=== PATIENT | female | born 1955 | race Caucasian/White ===

== ENCOUNTER 2019-05-04 14:15 | Emergency (ER) | payer BC, SELFPAY ==
[2019-05-04 14:19] VITALS: BP 157/72; PULSE 62; RESP 14; TEMP 36.2; O2SAT 100
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
[2019-05-04] MEDS: ONDANSETRON 4 MG/2 ML INJ IV (15:07)
[2019-05-04] MEDS: KETOROLAC 60 MG/2 ML VIAL 30 MG IV (15:07)
[2019-05-04] MEDS: SODIUM CHLORIDE 0.9% 1,000 ML 1000 ML IV (15:07)
[2019-05-04 16:02] VITALS: BP 140/72; PULSE 65; RESP 16; O2SAT 100
== END 2019-05-04 16:02 | disposition home or self-care (01) ==
PROVIDERS: Emergency Provider Emergency Medicine
DX: G43.909 Migraine, unspecified, not intractable, without status migrainosus (principal); V43.52XA Car driver injured in collision with other type car in traffic accident, initial encounter
CPT/HCPCS: 96361; 96374; 96375; 99283; 99284; J1885; J2405

== ENCOUNTER → 2022-10-23 12:05 | Outpatient (CLI) | payer MEDICARE, BC, SELFPAY ==
--- NOTE | 2022-10-23 | DI.CT.S_ITS ---
PROCEDURE: CT HEAD/BRAIN WO/W CON INDICATIONS: concussion with loss of conscionness TECHNIQUE: 4.5 mm thick angled axial sections acquired from the foramen magnum to the vertex both before and after the administration of intravenous contrast, with coronal and sagittal reformats. For radiation dose reduction, the following was used: automated exposure control, adjustment of mA and/or kV according to patient size. COMPARISON: None. FINDINGS: Image quality: Excellent. CSF spaces: Basal cisterns are patent. No extra-axial fluid collections. Ventricles are symmetric in size and shape. Brain: No midline shift. No intracranial bleeds or masses. No abnormal intracranial enhancement. Dural sinuses and major central cerebral arteries demonstrate normal postcontrast enhancement. There is cerebral volume loss for age. There is periventricular white matter chronic small vessel ischemic change. There is intracranial internal carotid artery atherosclerosis. Skull and face: Calvarium and visualized facial bones appear intact, without suspicious lesions. Sinuses: Visualized sinuses and mastoids are clear. IMPRESSION: No acute intracranial disease process. Dictated by: Betina Lopez MD, PhD on 10/23/2022 at 12:58 Approved by: Betina Lopez MD, PhD on 10/23/2022 at 13:01
== END ==
PROVIDERS: PCP Family Medicine; Referring Provider Family Medicine; Visit Provider Family Medicine
DX: S00.93XA Contusion of unspecified part of head, initial encounter (principal); S06.0X9A Concussion with loss of consciousness of unspecified duration, initial encounter; G35 Multiple sclerosis; R29.6 Repeated falls
CPT/HCPCS: 70470; Q9967

== ENCOUNTER 2023-03-13 22:29 | Emergency (ER) | payer MEDICARE, BC, SELFPAY ==
[2023-03-13 22:43] VITALS: BP 182/79; PULSE 90; RESP 18; TEMP 37.1; O2SAT 99; BMI 20.5
[2023-03-13 23:08] LABS: RBC Urine 0-1/HPF (0-5/HPF)
[2023-03-13 23:09] LABS: Bacteria Urine Few (2-10); Culture Indicated Urine Specimen Cultured; Squamous Epithelial Cell Urine 1-5 /HPF (0-5/HPF); WBC Urine 5-10/HPF (0-5/HPF)
--- NOTE | 2023-03-13 23:10 | ED_ITS ---
HPI - General Adult General Chief complaint: Urogenital-Female Stated complaint: thinks kidney stone Time Seen by Provider: 03/13/23 22:57 Source: patient Mode of arrival: Ambulatory History of Present Illness HPI narrative: Patient is a 67-year-old female. Has had history of kidney stones. Has needed to have lithotripsy. States that earlier today she started have dysuria. Having urinary frequency and urgency and burning and pain with urination. She also has left-sided flank pain that she states does feel somewhat like a prior kidney stone. No vomiting. No fevers. Has not tried anything for the symptoms prior to arrival. Related Data Previous Rx's Medication Instructions Recorded ketorolac 10 mg tablet 10 mg PO Q6H PRN pain #14 tabs 05/04/19 ondansetron 4 mg disintegrating 4 mg PO TID-QID PRN nausea and 05/04/19 tablet vomiting #10 tabs cephalexin 500 mg capsule 500 mg PO BID 5 days #10 caps 03/14/23 fluconazole 100 mg tablet 100 mg PO DAILY #7 tabs 03/14/23 (Diflucan) phenazopyridine 100 mg tablet 100 mg PO TID PRN pain 6 doses #6 03/14/23 (Pyridium) tabs Allergies Allergy/AdvReac Type Severity Reaction Status Date / Time codeine Allergy Unknown Verified 05/04/19 14:24 prochlorperazine Allergy Unknown Verified 05/04/19 14:24 baclofen Allergy Verified 03/13/23 22:43 ketorolac Allergy Verified 03/13/23 22:43 tizanidine [From Zanaflex] Allergy Verified 03/13/23 22:43 NSAIDS (Non-Steroidal AdvReac Unknown Verified 05/04/19 14:24 Anti-Inflamma prednisone AdvReac Unknown Verified 05/04/19 14:24 tramadol AdvReac Unknown Verified 05/04/19 14:24 oral steroids AdvReac Uncoded 03/13/23 22:43 Review of Systems Review of Systems ROS Unobtainable: All systems reviewed & are unremarkable except as noted in HPI and below Patient History Medical History Multiple sclerosis Social History Smoking Status: Never smoker Smoking Status: Never smoker alcohol intake frequency: 0-2 drinks per day Substance Use Type: does not use Exam Initial Vital Signs Initial Vital Signs: Vital Signs Temperature 98.7 F 03/13/23 22:43 Pulse Rate 90 03/13/23 22:43 Respiratory Rate 18 03/13/23 22:43 Blood Pressure 182/79 H 03/13/23 22:43 Pulse Oximetry 99 03/13/23 22:43 Oxygen Delivery Method Room Air 03/13/23 22:43 Const General: cooperative, comfortable and No ill appearing HENMT Head: normal to inspection and normocephalic Resp Effort & Inspection: normal respiratory effort Auscultation: clear to auscultation bilaterally Cardio Rate: regular rate Rhythm: regular rhythm GI Inspection: normal to inspection and non-distended Back/Spine/Pelvis Back: No CVA tenderness Skin General: no rashes or lesions noted Extrem General: normal to inspection and capillary refill normal Course Orders Ordered: ED Orders 03/13/23 23:00 Urine Culture Stat Urine Microscopic Stat 03/13/23 23:11 CT kidney ureter bladder (KUB) Stat 03/13/23 23:22 Basic Metabolic Panel Stat Complete Blood Count AUTO DIFF Stat Discontinued Medications Cephalexin HCl (Cephalexin 250 Mg Capsule) 500 mg PO NOW ONE Stop: 03/14/23 00:45 Morphine Sulfate (Morphine 4 Mg/Ml Inj) 4 mg IV NOW ONE Stop: 03/13/23 23:13 Last Admin: 03/13/23 23:24 Dose: 4 mg Documented By: AGUS Ondansetron HCl (Ondansetron 4 Mg/2 Ml Inj) 4 mg IV NOW ONE Stop: 03/13/23 23:12 Last Admin: 03/13/23 23:24 Dose: 4 mg Documented By: AGUS Phenazopyridine HCl (Phenazopyridine 100 Mg Tablet) 100 mg PO NOW ONE Stop: 03/14/23 00:45 Vital Signs Vital signs: Vital Signs - 8 hr 03/13/23 22:43 03/13/23 23:42 03/13/23 23:43 Temperature 98.7 F Pulse Rate 90 77 Respiratory Rate 18 Blood Pressure 182/79 H 137/63 Pulse Oximetry 99 97 Oxygen Delivery Method Room Air 03/13/23 23:43 03/14/23 00:00 03/14/23 00:00 Temperature Pulse Rate 76 70 Respiratory Rate Blood Pressure 137/61 Pulse Oximetry 96 96 Oxygen Delivery Method 03/14/23 00:30 03/14/23 00:30 Temperature Pulse Rate 74 Respiratory Rate Blood Pressure 153/63 H Pulse Oximetry 95 Oxygen Delivery Method Medical Decision Making Lab Data Lab results reviewed: Yes I reviewed the patient's lab results. 03/13/23 23:22 03/13/23 23:22 Labs: Lab Results 03/13/23 03/13/23 03/13/23 Range/Units 23:00 23:22 23:22 WBC 9.2 (4.5-11.0) X10^3/uL RBC 3.55 L (4.0-5.2) X10^6/uL Hgb 11.6 L (12.0-16.0) g/dL Hct 33.5 L (36-46) % MCV 94.4 (80-100) fL MCH 32.6 (26-34) PG MCHC 34.5 (30-36) % RDW 12.6 (11.6-14.8) % Plt Count 279 (150-400) X10^3/uL Neut % (Auto) 58.3 (50-75) % Lymph % (Auto) 29.8 (25-40) % Bee % (Auto) 9.1 (3-14) % Eos % (Auto) 2.0 (2-4) % Baso % (Auto) 0.8 (0-2) % Neut # (Auto) 5300 (6624-1563) /uL Lymph # (Auto) 2700 (4180-5110) /uL Bee # (Auto) 800 (0-900) /uL Eos # (Auto) 200 (0-450) /uL Baso # (Auto) 100 (0-100) /uL Sodium 135 L (137-145) mmol/L Potassium 4.0 (3.4-5.1) mmol/L Chloride 100 (98-107) mmol/L Carbon Dioxide 30 (22-32) mmol/L BUN 8 (7-17) mg/dL Creatinine 0.52 (0.52-1.04) mg/dL Estimated GFR > 60 (>60) mL/min BUN/Creatinine Ratio 15.4 (6-22) Glucose 102 (80-110) mg/dL Calcium 9.0 (8.4-10.2) mg/dL Urine RBC 0-1/hpf (0-5/HPF) Urine WBC 5-10/hpf H (0-5/HPF) Ur Squamous Epith Cells 1-5 /hpf (0-5/HPF) Urine Bacteria Few (2-10) H (None) Ur Culture Indicated? Specimen cultured Urine Dip Bedside Urine Glucose Negative Bedside Urine Bilirubin - Negative Bedside Urine Ketone - Negative Urine Specific [place] 1.01 Bedside Urine Occult Blood +++ Bedside Urine pH 6 Bedside Urine Protein - Negative Bedside Urine Urobilinogen - Negative Bedside Urine Nitrite - Negative Bedside Urine Leukocytes + 70 Esterase Point of care testing: Urine Dip Bedside Urine Glucose Negative Bedside Urine Bilirubin - Negative Bedside Urine Ketone - Negative Urine Specific [place] 1.01 Bedside Urine Occult Blood +++ Bedside Urine pH 6 Bedside Urine Protein - Negative Bedside Urine Urobilinogen - Negative Bedside Urine Nitrite - Negative Bedside Urine Leukocytes + [address] scan - abdomen/pelvis: Radiologist's Impression: PROCEDURE:? CT KIDNEY URETER BLADDER (KUB) ? INDICATIONS:? L side flank pain eval for stone ? TECHNIQUE:? Axial sections were acquired from the lung bases to the pubic symphysis.? Coronal and sagittal reformats were performed.? For radiation dose reduction, the following was used: ?automated exposure control, adjustment of mA and/or kV according to patient size.? ? COMPARISON:? None. ? FINDINGS:? Image quality:? Excellent.? ? Lung bases:? There is minimal atelectasis.? ? Heart:? Heart is normal in size. ? URINARY: Right Kidney and Ureter: ? No stones or hydronephrosis.? No hydroureter.? ? Left Kidney and Ureter: ? There is a 0.2 cm nonobstructing left renal stone.? No hydronephrosis.? No hydroureter. ? Bladder:? Normal wall thickness. No stones. ? ? ? ABDOMEN: Liver:? Noncontrast evaluation of the liver demonstrates no discrete? mass. Gallbladder:? Surgically absent. Biliary ducts:? No biliary ductal dilatation.? ? Pancreas:? Unremarkable.? ? Spleen:? Normal in size.? ? Adrenal Glands:? No adrenal nodules.? ? ? Stomach and Bowel:? Stomach, small bowel loops, and colon are normal in caliber and wall thickness.? No pericecal inflammatory changes to suggest appendicitis. Peritoneum:? No abnormal intraperitoneal fluid.? No free air.? ? Ventral Wall: ? No hernia.? Abdominal Nodes:? No retroperitoneal or mesenteric adenopathy by size criteria.? Vessels:? Aorta and inferior vena cava are normal in size.? ? PELVIS: Pelvic Organs:? Unremarkable.? ? Pelvic Nodes:? There are bilateral mildly enlarged inguinal lymph nodes measuring up to 1.0 cm in short axis which are nonspecific but likely reactive. Miscellaneous: No inguinal hernias identified. ? ? ? Bones:? Visualized osseous structures demonstrate no suspicious focal lesions. IMPRESSION:? ? 1. Small nonobstructing left renal stone.? No evidence of obstructive uropathy. ? 2. Mildly enlarged bilateral inguinal lymph nodes are nonspecific but likely reactive.? MDM Narrative Medical decision making narrative: Patient does have left-sided kidney stone but no ureteral stones. Her urinalysis does have hematuria and also leukocyte esterase and white blood cells and bacteria. There was no signs of pyelonephritis noted on the CT scan. I have low suspicion that the kidney stone was causing her discomfort and I suspect that it is more of the urinary tract infection. Will treat her with antibiotics. No indication for IV antibiotics. Kidney function is unremarkable. Patient was given her 1st dose here in the ER. Also sent home with the Diflucan she states she very frequently gets issues with yeast after having chemotherapy and taking antibiotics. The urine culture was pending at the time of discharge and we will contact her if we need to change any antibiotics. She was given return precautions. She expressed understanding and agreement. Discharge Plan Departure Patient Disposition: Home Clinical Impression: Urinary tract infection Instructions: DI for Urinary Tract Infection (UTI) Activity Restrictions/Additional Instructions: I do recommend that you take all the medications as directed. A urine culture was pending at the time of your discharge and we will contact you if we need to change any antibiotics. Return to the emergency department for new or worsening symptoms. Prescriptions: New cephalexin 500 mg capsule 500 mg PO BID 5 Days Qty: 10 0RF phenazopyridine [Pyridium] 100 mg tablet 100 mg PO TID PRN (Reason: pain) Qty: 6 0RF fluconazole [Diflucan] 100 mg tablet 100 mg PO DAILY Qty: 7 0RF No Action ketorolac 10 mg tablet 10 mg PO Q6H PRN (Reason: pain) Qty: 14 0RF ondansetron 4 mg tablet,disintegrating 4 mg PO TID-QID PRN (Reason: nausea and vomiting) Qty: 10 0RF Referrals: Abdoulaye Geronimo DO [Primary Care Provider] - Stand Alone Forms: Patient Portal/API
--- NOTE | 2023-03-13 23:11 | DI.CT.S_ITS ---
PROCEDURE: CT KIDNEY URETER BLADDER (KUB) INDICATIONS: L side flank pain eval for stone TECHNIQUE: Axial sections were acquired from the lung bases to the pubic symphysis. Coronal and sagittal reformats were performed. For radiation dose reduction, the following was used: automated exposure control, adjustment of mA and/or kV according to patient size. COMPARISON: None. FINDINGS: Image quality: Excellent. Lung bases: There is minimal atelectasis. Heart: Heart is normal in size. URINARY: Right Kidney and Ureter: No stones or hydronephrosis. No hydroureter. Left Kidney and Ureter: There is a 0.2 cm nonobstructing left renal stone. No hydronephrosis. No hydroureter. Bladder: Normal wall thickness. No stones. ABDOMEN: Liver: Noncontrast evaluation of the liver demonstrates no discrete mass. Gallbladder: Surgically absent. Biliary ducts: No biliary ductal dilatation. Pancreas: Unremarkable. Spleen: Normal in size. Adrenal Glands: No adrenal nodules. Stomach and Bowel: Stomach, small bowel loops, and colon are normal in caliber and wall thickness. No pericecal inflammatory changes to suggest appendicitis. Peritoneum: No abnormal intraperitoneal fluid. No free air. Ventral Wall: No hernia. Abdominal Nodes: No retroperitoneal or mesenteric adenopathy by size criteria. Vessels: Aorta and inferior vena cava are normal in size. PELVIS: Pelvic Organs: Unremarkable. Pelvic Nodes: There are bilateral mildly enlarged inguinal lymph nodes measuring up to 1.0 cm in short axis which are nonspecific but likely reactive. Miscellaneous: No inguinal hernias identified. Bones: Visualized osseous structures demonstrate no suspicious focal lesions. IMPRESSION: 1. Small nonobstructing left renal stone. No evidence of obstructive uropathy. 2. Mildly enlarged bilateral inguinal lymph nodes are nonspecific but likely reactive. Dictated by: Vishal aDvis M.D. on 03/14/2023 at 0:12 Approved by: Vishal Davis M.D. on 03/14/2023 at 0:15
[2023-03-13] MEDS: MORPHINE 4 MG/ML INJ IV (23:24)
[2023-03-13] MEDS: ONDANSETRON 4 MG/2 ML INJ IV (23:24)
[2023-03-13 23:31] LABS: Add Manual Diff / Slide Review NO; Basophils Absolute Auto 100 /uL (0-100); Basophils Percent Auto 0.8 % (0-2); Eosinophils Absolute Auto 200 /uL (0-450); Hematocrit 33.5 % (36-46); Hemoglobin 11.6 g/dL (12.0-16.0); Lymphocytes Absolute Auto 2700 /uL (1100-4500); Lymphocytes Percent Auto 29.8 % (25-40); Mean Corpuscular HGB Conc 34.5 % (30-36); Mean Corpuscular Hemoglobin 32.6 PG (26-34); Mean Corpuscular Volume 94.4 fL (80-100); Monocytes Absolute Auto 800 /uL (0-900); Monocytes Percent Auto 9.1 % (3-14); Neutrophils Absolute Auto 5300 /uL (1500-7000); Neutrophils Percent Auto 58.3 % (50-75); Platelet Count 279 X10^3/uL (150-400); Red Blood Cell Count 3.55 X10^6/uL (4.0-5.2); Red Cell Distribution Width 12.6 % (11.6-14.8); White Blood Cell Count 9.2 X10^3/uL (4.5-11.0)
[2023-03-13 23:42] VITALS: PULSE 77; O2SAT 97
[2023-03-13 23:43] VITALS: BP 137/63; PULSE 76; O2SAT 96
[2023-03-13 23:45] LABS: BUN Creatinine Ratio 15.4 (6-22); Blood Urea Nitrogen 8 mg/dL (7-17); Carbon Dioxide 30 mmol/L (22-32); Chloride 100 mmol/L (98-107); Estimated Glomerular Filt Rate > 60 mL/min (>60); Glucose 102 mg/dL (80-110); HEMOLYSIS 39 (0-50); Sodium 135 mmol/L (137-145)
[2023-03-14] VITALS: BP 137/61; PULSE 70; O2SAT 96
[2023-03-14 00:30] VITALS: BP 153/63; PULSE 74; O2SAT 95
[2023-03-14] MEDS: PHENAZOPYRIDINE 100 MG TABLET PO (00:56)
[2023-03-14] MEDS: cephALEXin 250 MG CAPSULE 500 MG PO (00:56)
[2023-03-14 00:57] VITALS: TEMP 36.6
== END 2023-03-14 00:58 | disposition home or self-care (01) ==
PROVIDERS: Emergency Provider Emergency Medicine; PCP Family Medicine
DX: N39.0 Urinary tract infection, site not specified (principal)
CPT/HCPCS: 36415; 74176; 80048; 81003; 81015; 85025; 87086; 96374; 96375; 99284; J2270; J2405

== ENCOUNTER → 2023-04-04 14:13 | Outpatient (CLI) | payer MEDICARE, BC, SELFPAY ==
--- NOTE | 2023-04-04 14:15 | DI.RAD.S_ITS ---
PROCEDURE: XR MANDIBLE MIN 4V INDICATIONS: jaw pain TECHNIQUE: 4 views of the mandible were acquired. COMPARISON: None. FINDINGS: Bones: No fractures or dislocations. No suspicious bony lesions. Soft tissues: Visualized sinuses appear clear. There is soft tissue gas noted tracking in the neck and retropharyngeal space, partially imaged IMPRESSION: Soft tissue gas in the right submandibular neck. Advise follow-up CT neck and chest with contrast. Differential would include infection and extension of soft tissue emphysema extending from the chest. Approved by: Dylon Heredia M.D. on 04/04/2023 at 18:08
== END ==
PROVIDERS: PCP Family Medicine; Referring Provider Nurse Practitioner Family; Visit Provider Nurse Practitioner Family
DX: R68.84 Jaw pain (principal)
CPT/HCPCS: 70110

== ENCOUNTER 2023-04-05 11:32 | Observation (INO) | payer MEDICARE, BC, SELFPAY ==
[2023-04-05] VITALS (11 sets, daily range): BP systolic 117–155; BP diastolic 58–91; PULSE 64–79; RESP 14–18; TEMP 36.6; O2SAT 96–98; BMI 21.2
--- NOTE | 2023-04-05 13:27 | DI.CT.S_ITS ---
PROCEDURE: CT SOFT TISSUE NECK W CON INDICATIONS: Pain TECHNIQUE: After the administration of intravenous contrast, 3.0 mm axial sections acquired from the sella to the aortic arch. 3 mm thick coronal and sagittal reformats were generated. For radiation dose reduction, the following was used: automated exposure control. COMPARISON: [facility], CR, XR MANDIBLE MIN 4V, 04/04/2023, 14:30. FINDINGS: Image quality: Excellent. Lymph nodes: No enlarged lymph nodes seen throughout the neck. Vessels: Visualized vasculature appears patent. Neck spaces: The oropharynx, nasopharynx, and pharynx demonstrate no mucosal lesions. The vocal cords, false vocal cords, pyriform sinuses, epiglottis, vallecula, and tongue base all appear normal. Right-sided subcutaneous emphysema noted dissecting through the fascial planes extending from the base of the skull through the superior mediastinum. Involvement of the retropharyngeal space as well, and does cross the midline. No pneumothorax in the upper chest present. No evidence of superior pneumothorax Glands: The parotid and submandibular glands appear normal. Thyroid gland unremarkable. Miscellaneous: Visualized brain and orbits appear normal. Lung apices appear clear. Superficial soft tissues appear normal. Bones: No suspicious bony lesions. Visualized sinuses and mastoids appear unremarkable. IMPRESSION: Benign-appearing soft tissue emphysema noted predominantly right-sided neck extending from the skull base into the superior mediastinum. This possibly could related to ruptured alveoli in the chest if there is a history of significant coughing. Differential would include esophageal rupture. Much less likely differential would include gas-forming infection such as necrotizing fasciitis. Correlate with clinical history as to the need for clinical follow-up and/or CT of the chest Approved by: Dylon Heredia M.D. on 04/05/2023 at 13:27
--- NOTE | 2023-04-05 13:30 | ED_ITS ---
HPI - Dental/Oral General Chief complaint: Dental/Oral Stated complaint: Sent from PCP, jaw/ear/neck Time Seen by Provider: 04/05/23 13:05 Source: patient, RN notes reviewed and old records reviewed Mode of arrival: Family Vehicle Limitations: no limitations History of Present Illness HPI Narrative: This is a 67-year-old female with primary progressive muscular sclerosis, history of breast cancer at age 31, endometriosis, RLS and plaque psoriasis. Patient presents today she had a dental procedure last Saturday she states they were drooling on her right lower jaw for a tooth not her posterior molars but mid jaw when she felt pop when the dentist was moving her cheek side with a mere had pain that radiated up to her ear and has since moved down her neck towards her chest. She states there has been some persistent swelling not worsening but not resolving some mild redness particularly on the underside above the clavicles. She states she is been hoarse since then. She states no fevers but has felt warm, she denies any chest pain or shortness of breath no nausea or vomiting. Related Data Home Medications Medication Instructions Recorded Confirmed almotriptan malate 12.5 mg tablet 12.5 mg PO ONCE PRN Migraine 04/04/23 04/05/23 Headache clonazepam 1 mg tablet 1 mg PO BEDTIME 04/04/23 04/05/23 duloxetine 60 mg capsule,delayed 60 mg PO DAILY 04/04/23 04/05/23 release (Cymbalta) estradiol 2 mg tablet 2 mg PO QAM 04/04/23 04/05/23 gabapentin 600 mg tablet 600 mg PO BEDTIME 04/04/23 04/05/23 hydromorphone 4 mg tablet 4 mg PO Q4-6H PRN Pain (Scale 04/04/23 04/05/23 Score 1-3) mirabegron 50 mg tablet,extended 50 mg PO DAILY 04/04/23 04/05/23 release 24 hr (Myrbetriq) oxcarbazepine 150 mg tablet 150 mg PO DAILY 04/04/23 04/05/23 (Trileptal) tolterodine 2 mg tablet (Detrol) 4 mg PO BEDTIME 04/04/23 04/05/23 biotin 1 mg tablet 1 mg PO DAILY 04/05/23 04/05/23 clobetasol 0.05 % topical cream 1 applic topical DAILY 04/05/23 04/05/23 cyanocobalamin (vitamin B-12) 5,000 mcg sublingual DAILY 04/05/23 04/05/23 5,000 mcg sublingual tablet ferrous gluconate 225 mg (27 mg 225 mg PO DAILY 04/05/23 04/05/23 iron) tablet (Fergon) glatiramer 40 mg/mL subcutaneous 40 mg SUBCUT 3XW 04/05/23 04/05/23 syringe (Copaxone) glucosamine sulf dipot 2 cap PO BEDTIME 04/05/23 04/05/23 chlr,msm,chond 550 mg-C 30 mg-ning 1 mg capsule (Glucosamine Chondroitin) psyllium 1 packet PO DAILY 04/05/23 04/05/23 Previous Rx's Medication Instructions Recorded ondansetron 4 mg disintegrating 4 mg PO TID-QID PRN nausea and 05/04/19 tablet vomiting #10 tabs Allergies Allergy/AdvReac Type Severity Reaction Status Date / Time codeine Allergy Unknown Verified 04/05/23 11:50 prochlorperazine Allergy Unknown Verified 04/05/23 11:50 baclofen Allergy Verified 04/05/23 11:50 ketorolac Allergy Verified 04/05/23 11:50 tizanidine [From Zanaflex] Allergy Verified 04/05/23 11:50 NSAIDS (Non-Steroidal AdvReac Unknown Verified 04/05/23 11:50 Anti-Inflamma prednisone AdvReac Unknown Verified 04/05/23 11:50 tramadol AdvReac Unknown Verified 04/05/23 11:50 oral steroids AdvReac Uncoded 03/13/23 22:43 Review of Systems Review of Systems ROS Unobtainable: All systems reviewed & are unremarkable except as noted in HPI and below Patient History Medical History Multiple sclerosis Social History Smoking Status: Never smoker Smoking Status: Never smoker alcohol intake frequency: 0-2 drinks per day Substance Use Type: does not use Exam Narrative Exam Narrative: GEN: well nourished, well appearing female, alert and oriented x 3, patient appears to be in mild distress. HEENT: Atraumatic, pupils are equal round reactive to light, extraocular movements are intact, nares are clear, TMs are clear with no fluid, there is no conjunctival pallor. Throat is clear without any exudates, erythema, tonsillar enlargement or uvular deviation, patient does have some discomfort fully opening her jaw, she states this is more from discomfort and not her MS. She has some mild swelling over the right mandible, no extensive, no subcutaneous emphysema appreciated, patient has some very mild possible erythema over the right lateral neck. Patient has normal range of motion. HEART: Regular rate and rhythm without murmur, clicks, rubs. LUNGS:Lungs clear to auscultation, no wheezes, rales, crackles, chest moves symmetrically ABD:bowel sounds normal, soft, non-tender, no guarding, rebound, rigidity, no masses noted, no hepatosplenomegaly :No CVA tenderness. MSCL: Non-tender, no muscle atrophy, muscles strength 5/5 upper and lower extremities, full range of motion. NEURO:CN 2-12 intact, sensation normal Initial Vital Signs Initial Vital Signs: Vital Signs Temperature 97.8 F 04/05/23 11:45 Pulse Rate 79 04/05/23 11:45 Respiratory Rate 18 04/05/23 11:45 Blood Pressure 133/63 04/05/23 11:45 Pulse Oximetry 97 04/05/23 11:45 Oxygen Delivery Method Room Air 04/05/23 11:45 Course Orders Ordered: Acetaminophen (Acetaminophen 325 Mg Tablet) 650 mg PO Q6H PRN PRN Reason: Fever/Mild Pain (1-3) Last Admin: 04/05/23 20:49 Dose: 650 mg Documented By: ST Duloxetine HCl (Duloxetine 30 Mg Capsule) 60 mg PO DAILY [facility] Estradiol (Estradiol 1 Mg Tablet) 2 mg PO DAILY [facility] Last Admin: 04/06/23 00:14 Dose: 2 mg Documented By: OW Fluconazole (Fluconazole 100 Mg Tablet) 100 mg PO DAILY [facility] Last Admin: 04/06/23 00:14 Dose: 100 mg Documented By: OW Ampicillin Sodium/Sulbactam (Sodium 3 gm/ Sodium Chloride) 100 mls @ 200 mls/hr IV Q6H AR Morphine Sulfate (Morphine 2 Mg/Ml Inj) 2 mg IV Q4HR PRN PRN Reason: Pain, Moderate (4-6) Last Admin: 04/06/23 04:16 Dose: 2 mg Documented By: Admin: 04/05/23 20:48 Dose: 2 mg Documented By: Naloxone HCl (Naloxone 0.4 Mg/Ml Vial) 0.2 mg IV Q2MIN PRN PRN Reason: Opiate Reversal Non-Formulary Medication (Tolterodine [Detrol]) 4 mg PO BEDTIME AR Ondansetron HCl (Ondansetron 4 Mg/2 Ml Inj) 4 mg IV Q8HR PRN PRN Reason: Nausea And Vomiting Oxcarbazepine (Oxcarbazepine 150 Mg Tablet) 150 mg PO DAILY AR Oxybutynin Chloride (Oxybutynin 5 Mg Er Tab) 10 mg PO DAILY AR Oxycodone HCl (Oxycodone Ir 5 Mg Tablet) 5 mg PO Q6HR PRN PRN Reason: Pain, Mild (1-3) Last Admin: 04/06/23 04:17 Dose: 5 mg Documented By: Admin: 04/05/23 20:50 Dose: 5 mg Documented By: Discontinued Medications Clonazepam (Clonazepam 0.5 Mg Tablet) 1 mg PO NOW ONE Stop: 04/06/23 00:25 Last Admin: 04/06/23 00:41 Dose: 1 mg Documented By: DOT Gabapentin (Gabapentin 600 Mg Tablet) 600 mg PO NOW ONE Stop: 04/06/23 00:05 Last Admin: 04/06/23 00:14 Dose: 600 mg Documented By: DOT Hydromorphone HCl (Hydromorphone 0.5 Mg Inj) 0.5 mg IV NOW ONE Stop: 04/05/23 13:28 Last Admin: 04/05/23 13:34 Dose: 0.5 mg Documented By: AGUS Hydromorphone HCl (Hydromorphone 0.5 Mg Inj) 0.5 mg IV NOW ONE Stop: 04/05/23 15:18 Last Admin: 04/05/23 15:22 Dose: 0.5 mg Documented By: Ampicillin Sodium/Sulbactam (Sodium 3 gm/ Sodium Chloride) 100 mls @ 200 mls/hr IV NOW ONE Stop: 04/05/23 16:19 Last Infusion: 04/05/23 17:40 Dose: 0 mls/hr Documented By: Admin: 04/05/23 16:56 Dose: 200 mls/hr Documented By: Vital Signs Vital signs: Vital Signs - 8 hr 04/05/23 11:45 04/05/23 14:00 04/05/23 14:30 Temperature 97.8 F Pulse Rate 79 73 77 Respiratory Rate 18 14 16 Blood Pressure 133/63 138/63 121/77 Pulse Oximetry 97 98 97 Oxygen Delivery Method Room Air Room Air Room Air 04/05/23 16:00 04/05/23 18:00 04/05/23 17:15 Temperature Pulse Rate 69 77 78 Respiratory Rate 14 14 Blood Pressure 142/65 H 143/65 H Pulse Oximetry 97 96 97 Oxygen Delivery Method Room Air Room Air MDM - Dental/Oral Lab Data 04/06/23 03:55 04/06/23 03:55 Labs: Lab Results 04/05/23 04/05/23 04/05/23 Range/Units 12:30 12:30 12:30 WBC 6.2 (4.5-11.0) X10^3/uL RBC 3.56 L (4.0-5.2) X10^6/uL Hgb 11.5 L (12.0-16.0) g/dL Hct 34.0 L (36-46) % MCV 95.7 (80-100) fL MCH 32.4 (26-34) PG MCHC 33.9 (30-36) % RDW 12.7 (11.6-14.8) % Plt Count 276 (150-400) X10^3/uL Neut % (Auto) 48.5 L (50-75) % Lymph % (Auto) 38.1 (25-40) % [place] % (Auto) 9.8 (3-14) % Eos % (Auto) 2.8 (2-4) % Baso % (Auto) 0.8 (0-2) % Neut # (Auto) 3000 (2138-3024) /uL Lymph # (Auto) 2300 (5768-5085) /uL [place] # (Auto) 600 (0-900) /uL Eos # (Auto) 200 (0-450) /uL Baso # (Auto) 0 (0-100) /uL Sodium 135 L (137-145) mmol/L Potassium 4.1 (3.4-5.1) mmol/L Chloride 99 (98-107) mmol/L Carbon Dioxide 31 (22-32) mmol/L BUN 17 (7-17) mg/dL Creatinine 0.56 (0.52-1.04) mg/dL Estimated GFR > 60 (>60) mL/min BUN/Creatinine Ratio 30.4 H (6-22) Glucose 85 (80-110) mg/dL Lactate 1.7 (0.7-2.1) mmol/L Calcium 9.0 (8.4-10.2) mg/dL Total Bilirubin 0.4 (0.2-1.3) mg/dL AST 23 (14-36) IU/L ALT 16 (<35) IU/L Alkaline Phosphatase 61 (38-126) U/L Total Protein 7.0 (6.3-8.2) g/dL Albumin 3.9 (3.5-5.0) g/dL Globulin 3.1 (1.7-4.1) g/dL Albumin/Globulin Ratio 1.3 (1.0-2.8) Procalcitonin < 0.03 (<0.5) ng/mL Imaging Data soft tissue neck CT: Radiologist's Impression: [address] [address] [address] Scan Report Signed Patient: Brunilda Castillo MR#: [id number] : 1955 Acct:[id number] Age/Sex: 67 / F Date of Service: 04/05/23 Loc: ED Accession Number: [id number] ?? Procedure: CT soft tissue neck w con Ordering Provider: Richa De Los Santos D.O. PROCEDURE:? CT SOFT TISSUE NECK W CON ? INDICATIONS:? Pain ? TECHNIQUE:? After the administration of intravenous contrast, 3.0 mm axial sections acquired from the sella to the aortic arch.? 3 mm thick coronal and sagittal reformats were generated.? For radiation dose reduction, the following was used:? automated exposure control.? ? COMPARISON:? [facility], [facility], XR MANDIBLE MIN 4V, 04/04/2023, 14:30. ? FINDINGS:? Image quality:? Excellent.? ? Lymph nodes:? No enlarged lymph nodes seen throughout the neck.? ? Vessels:? Visualized vasculature appears patent.? ? Neck spaces:? The oropharynx, nasopharynx, and pharynx demonstrate no mucosal lesions.? The vocal cords, false vocal cords, pyriform sinuses, epiglottis, vallecula, and tongue base all appear normal.? ? Right-sided subcutaneous emphysema noted dissecting through the fascial planes extending from the base of the skull through the superior mediastinum.? Involvement of the retropharyngeal space as well, and does cross the midline.? No pneumothorax in the upper chest present.? No evidence of superior pneumothorax ? Glands:? The parotid and submandibular glands appear normal.? Thyroid gland unremarkable. ? ? Miscellaneous:? Visualized brain and orbits appear normal.? Lung apices appear clear.? Superficial soft tissues appear normal. ? Bones:? No suspicious bony lesions.? Visualized sinuses and mastoids appear unremarkable. ? ? ? IMPRESSION:? ? Benign-appearing soft tissue emphysema noted predominantly right-sided neck extending from the skull base into the superior mediastinum.? This possibly could related to ruptured alveoli in the chest if there is a history of significant coughing.? Differential would include esophageal rupture.? Much less likely differential would include gas-forming infection such as necrotizing fasciitis.? Correlate with clinical history as to the need for clinical follow-up and/or CT of the chest ? Approved by: Dylon Heredia M.D. on 04/05/2023 at 13:27? CT scan - chest: Radiologist's Impression: Allergy/Adv: codeine, prochlorperazine, baclofen, ketorolac, tizanidine, NSAIDS (Non-Steroidal Anti-Inflamma, prednisone, tramadol, [oral steroids] (More??) Close Chest CT (Signed) Dylon Heredia - 04/05/[address] (Signed) Dylon Heredia - 04/05/23 Mandible X-Ray (Signed) Dylon Heredia - 04/04/23 Abdomen/Pelvis CT (Signed) Vishal Davis - 03/13/[address] (Signed) Betina Lopez - 10/23/22 Launch?[address] [address] [address] Scan Report Signed Patient: Brunilda Castillo MR#: [id number] : 1955 Acct:[id number] Age/Sex: 67 / F Date of Service: 04/05/23 Loc: ED Accession Number: [id number] ?? Procedure: CT chest w con Ordering Provider: Richa De Los Santos D.O. PROCEDURE:? CT CHEST W CON ? INDICATIONS:? emphysema, hoarseness, felt pop after dental procedure. ? TECHNIQUE:? After the administration of intravenous contrast, 5 mm thick sections acquired from the pulmonary apices to the posterior costophrenic angles.? 1 mm axial lung, 5 mm thick coronal and sagittal reformats and 7 mm axial MIP were acquired.? For radiation dose reduction, the following was used:? automated exposure control, adjustment of mA and/or kV according to patient size.? ? COMPARISON:? None. ? FINDINGS:? Image quality:? Excellent.? ? Lungs and pleura:? No acute air space opacities.? No pleural effusions or pneumothorax.? Central and peripheral airways are patent and normal in caliber.? Mild platelike atelectasis noted in the lingular left upper lobe anteriorly ? Mediastinum:? Fascial soft tissue air extends from the base of the neck through the superior mediastinum, connects to the periesophageal posterior mediastinum inferiorly to the level of the midesophagus.? The esophagus itself appears unremarkable.? Gastric cardia normal.? ? Mild scattered atherosclerotic vascular calcifications noted in upper abdominal aorta.? Heart size is normal.? No pericardial effusion.? No mediastinal or hilar adenopathy by size criteria.? Thoracic aorta and central pulmonary arteries are normal in size.? Esophagus is normal in caliber.? No hiatal hernia.? ? Bones and chest wall:? No suspicious bony lesions.? No vertebral body compression fractures.? No axillary or supraclavicular adenopathy by size criteria.? Thyroid gland unremarkable .? ? Abdomen:? Visualized upper abdominal solid organs appear normal.? Upper abdominal bowel loops are normal in caliber.? ? IMPRESSION:? ? Mediastinal soft tissue emphysema extends from the base the neck to the level of the midesophagus.? Esophagus itself appears unremarkable.? No mass effect.? Both lungs unremarkable without pneumothorax. ? ? ? Approved by: Dylon Heredia M.D. on 04/05/2023 at 14:57? [facility] Narrative Medical decision making narrative: 67-year-old female with complaint of pain drink a dental procedure patient had drilling of the tooth and then after drilling stopped they were using a meter to evaluate and then developed pain radiating from her cheek towards her ear and down her neck. She is had some persistent swelling and discomfort. Labs do not show clear change, patient's imaging shows air tracking from what appears to be the cheek down words after discussion with Radiology. CT chest was also obtained. Discussed with local ENT Burt grayson who recommended antibiotics either clinda or Unasyn/Augmentin, recommends consultation with [facility]. Spoke with Dr. Varma, oral surgeon through [facility]. Recommends observation overnight with IV antibiotics Unasyn would be very appropriate. He states quite rare for them to see an actual abscess but is likely related to infection. If patient is doing can discharge home on oral Augmentin. If worsening or other concerning changes to re-contact. Spoke with hospitalist, Dr. Cao accepts for observation. Discussed recommendations from oral surgery observation, Unasyn IV can switch to oral Augmentin. They note that this can sometimes happen they will often not see an actual abscess on imaging but can develop some air typically treat. If no worsening and appears stable appropriate for discharge if there is any worsening or concerning new changes feel free to recontact. Discharge Plan Departure Patient Disposition: Admitted as Observation Clinical Impression: Subcutaneous air, History of recent dental procedure Admit Date/Time: 04/05/23 19:42 Admit Provider: Duy Cao
[2023-04-05] MEDS: HYDROMORPHONE 0.5 MG INJ IV ×2 (13:34→15:22)
[2023-04-05 13:47] LABS: Add Manual Diff / Slide Review NO; Basophils Absolute Auto 0 /uL (0-100); Basophils Percent Auto 0.8 % (0-2); Eosinophils Absolute Auto 200 /uL (0-450); Eosinophils Percent Auto 2.8 % (2-4); Hemoglobin 11.5 g/dL (12.0-16.0); Lymphocytes Absolute Auto 2300 /uL (1100-4500); Lymphocytes Percent Auto 38.1 % (25-40); Mean Corpuscular HGB Conc 33.9 % (30-36); Mean Corpuscular Hemoglobin 32.4 PG (26-34); Mean Corpuscular Volume 95.7 fL (80-100); Monocytes Absolute Auto 600 /uL (0-900); Monocytes Percent Auto 9.8 % (3-14); Neutrophils Absolute Auto 3000 /uL (1500-7000); Neutrophils Percent Auto 48.5 % (50-75); Platelet Count 276 X10^3/uL (150-400); Red Blood Cell Count 3.56 X10^6/uL (4.0-5.2); Red Cell Distribution Width 12.7 % (11.6-14.8); White Blood Cell Count 6.2 X10^3/uL (4.5-11.0)
[2023-04-05 13:53] LABS: Lactate (Lactic Acid) 1.7 mmol/L (0.7-2.1)
[2023-04-05 13:54] LABS: Alanine Aminotransferase 16 IU/L (<35); Albumin 3.9 g/dL (3.5-5.0); Albumin Globulin Ratio 1.3 (1.0-2.8); Alkaline Phosphatase 61 U/L (38-126); Aspartate Aminotransferase 23 IU/L (14-36); BUN Creatinine Ratio 30.4 (6-22); Bilirubin Total 0.4 mg/dL (0.2-1.3); Blood Urea Nitrogen 17 mg/dL (7-17); Carbon Dioxide 31 mmol/L (22-32); Chloride 99 mmol/L (98-107); Estimated Glomerular Filt Rate > 60 mL/min (>60); Globulin 3.1 g/dL (1.7-4.1); Glucose 85 mg/dL (80-110); HEMOLYSIS < 15 (0-50); Potassium 4.1 mmol/L (3.4-5.1); Sodium 135 mmol/L (137-145)
[2023-04-05 14:09] LABS: Procalcitonin < 0.03 ng/mL (<0.5)
--- NOTE | 2023-04-05 14:45 | DI.CT.S_ITS ---
PROCEDURE: CT CHEST W CON INDICATIONS: emphysema, hoarseness, felt pop after dental procedure. TECHNIQUE: After the administration of intravenous contrast, 5 mm thick sections acquired from the pulmonary apices to the posterior costophrenic angles. 1 mm axial lung, 5 mm thick coronal and sagittal reformats and 7 mm axial MIP were acquired. For radiation dose reduction, the following was used: automated exposure control, adjustment of mA and/or kV according to patient size. COMPARISON: None. FINDINGS: Image quality: Excellent. Lungs and pleura: No acute air space opacities. No pleural effusions or pneumothorax. Central and peripheral airways are patent and normal in caliber. Mild platelike atelectasis noted in the lingular left upper lobe anteriorly Mediastinum: Fascial soft tissue air extends from the base of the neck through the superior mediastinum, connects to the periesophageal posterior mediastinum inferiorly to the level of the midesophagus. The esophagus itself appears unremarkable. Gastric cardia normal. Mild scattered atherosclerotic vascular calcifications noted in upper abdominal aorta. Heart size is normal. No pericardial effusion. No mediastinal or hilar adenopathy by size criteria. Thoracic aorta and central pulmonary arteries are normal in size. Esophagus is normal in caliber. No hiatal hernia. Bones and chest wall: No suspicious bony lesions. No vertebral body compression fractures. No axillary or supraclavicular adenopathy by size criteria. Thyroid gland unremarkable . Abdomen: Visualized upper abdominal solid organs appear normal. Upper abdominal bowel loops are normal in caliber. IMPRESSION: Mediastinal soft tissue emphysema extends from the base the neck to the level of the midesophagus. Esophagus itself appears unremarkable. No mass effect. Both lungs unremarkable without pneumothorax. Approved by: Dylon Heredia M.D. on 04/05/2023 at 14:57
[2023-04-05] MEDS: AMPICILLIN/SULBACTAM 3 GM 3 GM in SODIUM CHLORIDE 0.9% 100 ML IV (16:56)
--- NOTE | 2023-04-05 20:17 | P.HP_ITS ---
History of Present Illness History of Present Illness Date Patient Seen: 04/05/23 Time Patient Seen: 21:00 Chief complaint: Sent from PCP, jaw/ear/neck Narrative: Ms. Christian Meadows is a 67W with PMH MS who presents with jaw/neck pain. She had a dental procedure recently with drilling of her mid jaw tooth. No tooth removal. She felt a pop when her cheek was moved with the dental mirror. She had pain that was up near her right ear. Since then it has worsened with right sided neck and chest pain. She has swelling of the right jaw and neck with mild erythema there as well. She has neck pain with swallowing, but no trouble breathing. She states that each time she takes antibiotics she gets esophagitis and she needs to take daily fluconazole to prevent this. In the ED workup was done, vitals notable or afebrile, heart rate 70s, blood pressure 130s/60s, sats 97% room air. Labs reviewed by me and notable for WBC 6.2, hgb 11.5, plts 276. Na 135, creatinine 0.56. Lactate 1.7. Procal negative. CT soft tissue of neck, and CT of chest showed right sided soft tissue emphysema that extends from skull base to the esophagus. OMFS at recommended observation and IV unasyn, and if continues to do well with no worsening discharge with antibiotics, such as Augmentin. She was admitted for further treatment. [facility] Medical History Multiple sclerosis Social History Smoking Status: Never smoker Meds Home Medications and Allergies Home Medications Medication Instructions Recorded Confirmed Type ketorolac 10 mg tablet 10 mg PO Q6H PRN pain #14 tabs 05/04/19 04/04/23 Rx ondansetron 4 mg disintegrating 4 mg PO TID-QID PRN nausea and 05/04/19 04/04/23 Rx tablet vomiting #10 tabs fluconazole 100 mg tablet 100 mg PO DAILY #7 tabs 03/14/23 04/04/23 Rx (Diflucan) phenazopyridine 100 mg tablet 100 mg PO TID PRN pain 6 doses #6 03/14/23 04/04/23 Rx (Pyridium) tabs almotriptan malate 12.5 mg tablet 12.5 mg PO ONCE 04/04/23 04/04/23 History clonazepam 1 mg tablet 1 mg PO BEDTIME 04/04/23 04/04/23 History duloxetine 60 mg capsule,delayed 60 mg PO DAILY 04/04/23 04/04/23 History release (Cymbalta) estradiol 2 mg tablet 2 mg PO DAILY 04/04/23 04/04/23 History gabapentin 600 mg tablet 600 mg PO BEDTIME 04/04/23 04/04/23 History hydromorphone 4 mg tablet 4 mg PO Q4-6H PRN 04/04/23 04/04/23 History mirabegron 50 mg tablet,extended 50 mg PO DAILY 04/04/23 04/04/23 History release 24 hr (Myrbetriq) oxcarbazepine 150 mg tablet 150 mg PO DAILY 04/04/23 04/04/23 History (Trileptal) tolterodine 2 mg tablet (Detrol) 2 mg PO DAILY 04/04/23 04/04/23 History Allergies Allergy/AdvReac Type Severity Reaction Status Date / Time codeine Allergy Unknown Verified 04/05/23 11:50 prochlorperazine Allergy Unknown Verified 04/05/23 11:50 baclofen Allergy Verified 04/05/23 11:50 ketorolac Allergy Verified 04/05/23 11:50 tizanidine [From Zanaflex] Allergy Verified 04/05/23 11:50 NSAIDS (Non-Steroidal AdvReac Unknown Verified 04/05/23 11:50 Anti-Inflamma prednisone AdvReac Unknown Verified 04/05/23 11:50 tramadol AdvReac Unknown Verified 04/05/23 11:50 oral steroids AdvReac Uncoded 03/13/23 22:43 Review of Systems Review of Systems Narrative: 14 systems reviewed and negative aside from what is noted in HPI Exam Vital Signs (past 8 hours): - 04/05/23 14:00 04/05/23 14:30 04/05/23 16:00 Pulse Rate 73 77 69 Respiratory Rate 14 16 Blood Pressure 138/63 121/77 Pulse Oximetry 98 97 97 Oxygen Delivery Method Room Air Room Air 04/05/23 18:00 04/05/23 17:15 Pulse Rate 77 78 Respiratory Rate 14 14 Blood Pressure 142/65 H 143/65 H Pulse Oximetry 96 97 Oxygen Delivery Method Room Air Room Air Oxygen Delivery Method Room Air Narrative Exam Narrative: GEN: appears to be in pain HEENT: moist mucous membranes, pain with opening her jaw, swelling over the right jaw, no subcutaneous emphysema palpated, erythema over right neck mild CV: regular rate and rhythm, no murmurs PULM: clear bilaterally, no wheezes, rhonchi, rales ABD: soft, nontender, nondistended EXT: warm and well perfused with no edema NEURO: awake, alert, oriented, no focal deficits Objective Labs 04/05/23 12:30 04/05/23 12:30 Labs: Laboratory Results - last 24 hr 04/05/23 04/05/23 04/05/23 12:30 12:30 12:30 WBC 6.2 RBC 3.56 L Hgb 11.5 L Hct 34.0 L MCV 95.7 MCH 32.4 MCHC 33.9 RDW 12.7 Plt Count 276 Neut % (Auto) 48.5 L Lymph % (Auto) 38.1 [place] % (Auto) 9.8 Eos % (Auto) 2.8 Baso % (Auto) 0.8 Neut # (Auto) 3000 Lymph # (Auto) 2300 [place] # (Auto) 600 Eos # (Auto) 200 Baso # (Auto) 0 Sodium 135 L Potassium 4.1 Chloride 99 Carbon Dioxide 31 BUN 17 Creatinine 0.56 Estimated GFR > 60 BUN/Creatinine Ratio 30.4 H Glucose 85 Lactate 1.7 Calcium 9.0 Total Bilirubin 0.4 AST 23 ALT 16 Alkaline Phosphatase 61 Total Protein 7.0 Albumin 3.9 Globulin 3.1 Albumin/Globulin Ratio 1.3 Procalcitonin < 0.03 Assessment & Plan Assessment & Plan narrative: 1. Pneumomediastinum, esophageal soft tissue air -CT soft tissue of neck with right sided soft tissue emphysema -CT chest shows mediastinal soft tissue air and esophageal soft tissue air -ED physician spoke with ENT who per ED physician had no specific recommendations other than to call [facility], ED spoke with OMFS who recommended observation and treat with IV unasyn and switch to oral antibiotics if remains stable -OMFS at stated that this is likely related to dental procedure, rare but it does occur -CT shows no esophageal abnormality such as rupture -she has no significant coughing, so pulmonary source of air seems less likely -currently no white count, fever, tachycardia, so nec fasc seems unlikely -monitor for clinical worsening -oral and IV meds for pain 2. Progressive MS -not currently on any medications 3. History of breast cancer, remote -in remission for decades since her 20s I have discussed plan and obtained history from the patient. I have discussed plan of care with ED physician and bedside nurse. I have reviewed labs and imaging. CODE: Full Proxy: family Andrea Wellington [facility] - Meds 'Current medications' to include all prescriptions, [id number] products, herbals, cannabis/cannabidiol products, and vitamin/mineral/dietary (nutritional) supplements. I have utilized all available resources to obtain, update, or review the patient?s current medications. [If Yes, STOP here]: Yes
[2023-04-05] MEDS: MORPHINE 2 MG/ML INJ IV (20:48)
[2023-04-05] MEDS: ACETAMINOPHEN 325 MG TABLET 650 MG PO (20:49)
[2023-04-05] MEDS: OXYCODONE IR 5 MG TABLET PO (20:50)
--- NOTE | 2023-04-05 22:27 | PC.NURSE ---
Provided blankets and pillows for comfort and assisted pt with repositioning. Pt resting comfortably
[2023-04-06] VITALS (18 sets, daily range): BP systolic 121–137; BP diastolic 53–64; PULSE 60–74; RESP 16–20; TEMP 36.1–36.3; O2SAT 95–100; BMI 21.2
[2023-04-06] MEDS: estradioL 1 MG TABLET 2 MG PO ×2 (00:14→20:56)
[2023-04-06] MEDS: GABAPENTIN 600 MG TABLET PO (00:14)
[2023-04-06] MEDS: FLUCONAZOLE 100 MG TABLET PO ×2 (00:14→09:12)
[2023-04-06] MEDS: clonazePAM 0.5 MG TABLET 1 MG PO (00:41)
[2023-04-06] MEDS: MORPHINE 2 MG/ML INJ IV ×4 (04:16→22:13)
[2023-04-06] MEDS: OXYCODONE IR 5 MG TABLET PO ×3 (04:17→22:13)
[2023-04-06 04:22] LABS: Add Manual Diff / Slide Review NO; Basophils Absolute Auto 0 /uL (0-100); Basophils Percent Auto 0.7 % (0-2); Eosinophils Absolute Auto 200 /uL (0-450); Eosinophils Percent Auto 3.7 % (2-4); Hemoglobin 11.6 g/dL (12.0-16.0); Lymphocytes Absolute Auto 2400 /uL (1100-4500); Lymphocytes Percent Auto 47.1 % (25-40); Mean Corpuscular HGB Conc 34.1 % (30-36); Mean Corpuscular Hemoglobin 32.7 PG (26-34); Monocytes Absolute Auto 600 /uL (0-900); Monocytes Percent Auto 11.1 % (3-14); Neutrophils Absolute Auto 1900 /uL (1500-7000); Neutrophils Percent Auto 37.4 % (50-75); Platelet Count 233 X10^3/uL (150-400); Red Blood Cell Count 3.54 X10^6/uL (4.0-5.2); Red Cell Distribution Width 12.5 % (11.6-14.8); White Blood Cell Count 5.2 X10^3/uL (4.5-11.0)
[2023-04-06 04:32] LABS: Blood Urea Nitrogen 10 mg/dL (7-17); Calcium 8.6 mg/dL (8.4-10.2); Carbon Dioxide 31 mmol/L (22-32); Chloride 103 mmol/L (98-107); Estimated Glomerular Filt Rate > 60 mL/min (>60); Glucose 92 mg/dL (80-110); HEMOLYSIS < 15 (0-50); Potassium 3.6 mmol/L (3.4-5.1); Sodium 136 mmol/L (137-145)
--- NOTE | 2023-04-06 06:00 | PC.NURSE ---
At 0000 04/06 this RN assumed care of pt. Pt was A&Ox4, airway patent and respirations unlabored with equal chest rise. Pt updated on plan of care. Pt has no further questions at this time and plans to try and sleep.
[2023-04-06] MEDS: AMPICILLIN/SULBACTAM 3 GM 3 GM in SODIUM CHLORIDE 0.9% 100 ML IV ×3 (08:22→18:55)
[2023-04-06] MEDS: DULOXETINE 30 MG CAPSULE 60 MG PO (09:12)
[2023-04-06] MEDS: OXYBUTYNIN 5 MG ER TAB 10 MG PO (09:13)
[2023-04-06] MEDS: ENOXAPARIN 40 MG/0.4 ML SYRINGE SUBCUT (13:18)
--- NOTE | 2023-04-06 17:37 | P.PN_ITS ---
Subjective Subjective Interval history: Patient feeling somewhat better but not by much. Still having pain in jaw, neck and difficulty swallowing. Has only been drinking liquids and has not tried any solids. Exam Vital Signs (past 8 hours): - 04/06/23 14:31 04/06/23 16:54 Temperature 97.3 F L Pulse Rate 74 Respiratory Rate 16 Blood Pressure 132/64 Pulse Oximetry 97 98 Oxygen Delivery Method Room Air Oxygen Flow Rate 0 Oxygen Delivery Method Room Air Oxygen Flow Rate 0 Narrative Exam Narrative: GEN: appears to be in pain HEENT: moist mucous membranes, pain with opening her jaw, swelling over the right jaw, no subcutaneous emphysema palpated, erythema over right neck mild CV: regular rate and rhythm, no murmurs PULM: clear bilaterally, no wheezes, rhonchi, rales ABD: soft, nontender, nondistended EXT: warm and well perfused with no edema NEURO: awake, alert, oriented, no focal deficits Objective Labs 04/06/23 03:55 04/06/23 03:55 Labs: Laboratory Results - last 24 hr 04/06/23 04/06/23 03:55 03:55 WBC 5.2 RBC 3.54 L Hgb 11.6 L Hct 34.0 L MCV 96.0 MCH 32.7 MCHC 34.1 RDW 12.5 Plt Count 233 Neut % (Auto) 37.4 L Lymph % (Auto) 47.1 H [place] % (Auto) 11.1 Eos % (Auto) 3.7 Baso % (Auto) 0.7 Neut # (Auto) 1900 Lymph # (Auto) 2400 [place] # (Auto) 600 Eos # (Auto) 200 Baso # (Auto) 0 Sodium 136 L Potassium 3.6 Chloride 103 Carbon Dioxide 31 BUN 10 Creatinine 0.50 L Estimated GFR > 60 BUN/Creatinine Ratio 20.0 Glucose 92 Calcium 8.6 [facility] Medical History Multiple sclerosis Social History household members: none Smoking Status: Never smoker alcohol intake: never Assessment & Plan Assessment & Plan narrative: 1. Pneumomediastinum, esophageal soft tissue air following dental procedure -CT soft tissue of neck with right sided soft tissue emphysema -CT chest shows mediastinal soft tissue air and esophageal soft tissue air -ED physician spoke with ENT who per ED physician had no specific recommendations other than to call [facility], ED spoke with OMFS who recommended observation and treat with IV unasyn and switch to oral antibiotics if remains stable -OMFS at stated that this is likely related to dental procedure, rare but it does occur -CT shows no esophageal abnormality such as rupture -she has no significant coughing, so pulmonary source of air seems less likely -currently no white count, fever, tachycardia, so nec fasc seems unlikely -monitor for clinical worsening -oral and IV meds for pain -pain slowly improving 2. Progressive MS -not currently on any medications 3. History of breast cancer, remote -in remission for decades since her 20s CODE: Full Proxy: Gisela Latham, family Dispo: Home likely on 04/07 if pain, swallowing improved and able to tolerate solids.
[2023-04-06] MEDS: OXcarbazepine 150 MG TABLET PO (20:57)
[2023-04-07] VITALS (9 sets, daily range): BP systolic 122–153; BP diastolic 43–71; PULSE 61–74; RESP 15–18; TEMP 36.1–36.7; O2SAT 96–100
[2023-04-07] MEDS: AMPICILLIN/SULBACTAM 3 GM 3 GM in SODIUM CHLORIDE 0.9% 100 ML IV ×4 (01:31→20:10)
--- NOTE | 2023-04-07 07:37 | PC.NURSE ---
had a good night. slept only a few hours, but states feeling much better. swelling is still noted in her right cheek, patient reports it has gone down significantly compared to when she went to urgent care. requested pain med x 2, morphine IVP given w/ good effect, oxycodone also given. declined ice pack, and reports massage of cheek is too painful. ind w/ mobility and ADLs. page to Dr Otoole, patient requesting her gabapentin and klonipin, these were d/c'd last night. no response from MD this shift. will have day shift follow up.
--- NOTE | 2023-04-07 09:33 | DI.CT.S_ITS ---
PROCEDURE: CT SOFT TISSUE NECK W CON INDICATIONS: Reassessment of soft tissue emphysema TECHNIQUE: After the administration of intravenous contrast, 3.0 mm axial sections acquired from the sella to the aortic arch. Additional oblique axial 3.0 mm sections acquired through the pharynx. 3 mm thick coronal and sagittal reformats were generated. For radiation dose reduction, the following was used: automated exposure control. COMPARISON: [facility], CT, CT SOFT TISSUE NECK W CON, 04/05/2023, 13:38. FINDINGS: Image quality: Excellent. Lymph nodes: No enlarged lymph nodes seen throughout the neck. Vessels: Visualized vasculature appears patent. Neck spaces: Decreased, mild amount of right greater than left deep and subcutaneous emphysema, largest amount of which is in the right parapharyngeal space. The oropharynx, nasopharynx, and pharynx demonstrate no mucosal lesions. The vocal cords, false vocal cords, pyriform sinuses, epiglottis, vallecula, and tongue base otherwise appear normal. Extramucosal spaces appear unremarkable. Glands: The parotid and submandibular glands appear normal. Thyroid gland is within normal limits. Miscellaneous: Visualized brain and orbits appear normal. Lung apices appear clear. Superficial soft tissues appear normal. Bones: No suspicious bony lesions. Visualized sinuses and mastoids appear unremarkable. IMPRESSION: Decreased soft tissue gas. Dictated by: Dulce Roberts M.D. on 04/07/2023 at 11:13 Approved by: Dulce Roberts M.D. on 04/07/2023 at 11:14
--- NOTE | 2023-04-07 09:34 | DI.CT.S_ITS ---
PROCEDURE: CT CHEST W CON INDICATIONS: Reassessment of soft tissue emphysema TECHNIQUE: After the administration of intravenous contrast, 5 mm thick sections acquired from the pulmonary apices to the posterior costophrenic angles. 1 mm axial lung, 5 mm thick coronal and sagittal reformats and 7 mm axial MIP were acquired. For radiation dose reduction, the following was used: automated exposure control, adjustment of mA and/or kV according to patient size. COMPARISON: [facility], CT, CT CHEST W CON, 04/05/2023, 14:55. FINDINGS: Image quality: Excellent. Lungs and pleura: New mild bibasilar airspace opacity. No pleural effusions or pneumothorax. Central and peripheral airways are patent and normal in caliber. Mediastinum: Decreased, mild superior mediastinal emphysema. Heart size is normal. No pericardial effusion. No mediastinal or hilar adenopathy by size criteria. Thoracic aorta and central pulmonary arteries are normal in size. Esophagus is normal in caliber. No hiatal hernia. Bones and chest wall: No suspicious bony lesions. No vertebral body compression fractures. No axillary or supraclavicular adenopathy by size criteria. Thyroid gland is within normal limits . Abdomen: Visualized upper abdominal solid organs appear normal. Upper abdominal bowel loops are normal in caliber. IMPRESSION: Decreased, mild mediastinal emphysema. Dictated by: Dulce Roberts M.D. on 04/07/2023 at 11:11 Approved by: Dulce Roberts M.D. on 04/07/2023 at 11:12
--- NOTE | 2023-04-07 09:36 | P.PN_ITS ---
Subjective Subjective Interval history: Able to eat oatmeal this morning. Still having pain in neck and chest area. Not requiring O2 supplementation. Exam Vital Signs (past 8 hours): - 04/07/23 04:00 04/07/23 04:06 04/07/23 08:23 Temperature 97.0 F L 97.2 F L Pulse Rate 64 Respiratory Rate 18 16 Blood Pressure 122/55 L 126/56 L Pulse Oximetry 96 98 100 Oxygen Delivery Method Room Air Oxygen Flow Rate 0 0 Oxygen Delivery Method Room Air Oxygen Flow Rate 0 Narrative Exam Narrative: GEN: appears to be in discomfort. HEENT: moist mucous membranes, pain with opening her jaw, swelling persistent somewhat over the right jaw, erythema over right neck mild CV: regular rate and rhythm, no murmurs PULM: clear bilaterally, no wheezes, rhonchi, rales ABD: soft, nontender, nondistended EXT: warm and well perfused with no edema NEURO: awake, alert, oriented, no focal deficits Objective Labs 04/06/23 03:55 04/06/23 03:55 [facility] Medical History Multiple sclerosis Social History household members: none Smoking Status: Never smoker alcohol intake: never Assessment & Plan Assessment & Plan narrative: 1. Pneumomediastinum, esophageal soft tissue air following dental procedure -CT soft tissue of neck with right sided soft tissue emphysema, reassess today -CT chest shows mediastinal soft tissue air and esophageal soft tissue air, re assess today -ED physician spoke with ENT who per ED physician had no specific recommendations other than to call [facility], ED spoke with OMFS who recommended observation and treat with IV unasyn and switch to oral antibiotics if remains stable, continue until discharge -OMFS at stated that this is likely related to dental procedure, rare but it does occur -CT shows no esophageal abnormality such as rupture on presentation. -she has no significant coughing, so pulmonary source of air seems less likely -on presentation and continued no white count, fever, tachycardia, so nec fasc seems unlikely -oral and IV meds for pain -pain slowly improving -patient able to tolerate oatmeal this morning but hesitant about going home do persistent pain in the chest and right neck area. 2. Progressive MS -not currently on any medications 3. History of breast cancer, remote -in remission for decades since her 20s Follow clinically. CODE: Full Proxy: Gisela Latham, family
[2023-04-07] MEDS: ENOXAPARIN 40 MG/0.4 ML SYRINGE SUBCUT (09:56)
[2023-04-07] MEDS: OXYCODONE IR 5 MG TABLET PO ×3 (09:56→20:10)
[2023-04-07] MEDS: DULOXETINE 30 MG CAPSULE 60 MG PO (09:57)
[2023-04-07] MEDS: FLUCONAZOLE 100 MG TABLET PO (09:57)
[2023-04-07] MEDS: OXYBUTYNIN 5 MG ER TAB 10 MG PO (09:57)
--- NOTE | 2023-04-07 13:21 | CM.DANOTE ---
Initial Discharge Assessment Note: Case reviewed, met with patient. Introduced self and role. Payer: Medicare and [employer] [facility] PCP: Abdoulaye Geronimo 67 year old with progressive MS had recent dental procedure. She has now developed swelling and pain to jaw/neck area and diagnosed with pneumomediastinum, esopheal soft tissue air to neck. Repeat CT planned for today. She tolerated oatmeal this morning for breakfast. Patient lives alone in own home in [place]. She is independent with cane and drives. She relies on friends as needed. Plan: Return home to previous living arrangement. JEFFERY Discharge Planning/Care Management CM Discharge Assessment Start: 04/07/23 13:20 Freq: Status: Active Protocol: Document 04/07/23 13:20 (Rec: 04/07/23 13:21 [id number]) Discharge Planning Assessment Assigned Supervisor Assembly Stock Annel Blackwell RN/DCP Advance Directives? Yes Advance Directives on File No History Provided By Patient Prior Living Arrangements House Household Members none Type of transporation used prior to Drives own vehicle admit Independent with ADL's Yes Is patient alert and oriented? Yes Caregiver for Another No DME Already Rented / Owned Bath Bench,Cane Discharge Plan Home Referrals Initiated None needed Review Status In Process Next Review Type Continued Stay Review
[2023-04-07] MEDS: ACETAMINOPHEN 325 MG TABLET 650 MG PO (20:09)
[2023-04-07] MEDS: OXcarbazepine 150 MG TABLET PO (20:09)
[2023-04-07] MEDS: estradioL 1 MG TABLET 2 MG PO (20:10)
[2023-04-07] MEDS: GABAPENTIN 600 MG TABLET PO (21:31)
[2023-04-07] MEDS: clonazePAM 0.5 MG TABLET 1 MG PO (21:31)
[2023-04-08] VITALS: BP 129/51; PULSE 63; RESP 20; TEMP 35.9; O2SAT 100
[2023-04-08] MEDS: AMPICILLIN/SULBACTAM 3 GM 3 GM in SODIUM CHLORIDE 0.9% 100 ML IV ×2 (01:36→06:47)
[2023-04-08 04:00] VITALS: BP 149/59; PULSE 62; RESP 18; TEMP 35.9; O2SAT 99
[2023-04-08] MEDS: ACETAMINOPHEN 325 MG TABLET 650 MG PO (06:53)
[2023-04-08] MEDS: OXYCODONE IR 5 MG TABLET PO (06:53)
[2023-04-08 08:00] VITALS: BP 140/67; PULSE 57; RESP 13; TEMP 36.1; O2SAT 100
--- NOTE | 2023-04-08 08:44 | P.DS_ITS ---
History of Present Illness History of Present Illness Date Patient Seen: 04/08/23 Chief complaint: Sent from PCP, jaw/ear/neck Discharge Providers Provider Date of admission: 04/05/23 19:42 Discharge Date: 04/08/23 Primary care physician: Abdoulaye Geronimo DO Discharge provider: Kenna Wolfe MD Summary Hospital Course Discharge Diagnosis: Pneumomediastinum Esophageal soft tissue air Progressive MS History of breast cancer, remote and in remission Hospital Course: Ms. Christian Meadows is a 67W with PMH MS who presented with jaw/neck pain. She had a dental procedure recently with drilling of her mid jaw tooth. No tooth removal. She felt a pop when her cheek was moved with the dental mirror. She had pain that was up near her right ear. Since then it has worsened with right sided neck and chest pain. She had swelling of the right jaw and neck with mild e rythema there as well. She had neck pain with swallowing, but no trouble breathing. She stated that each time she takes antibiotics she gets esophagitis with [place] and she needs to take daily fluconazole to prevent this. CT soft tissue of neck, and CT of chest showed right sided soft tissue emphysema that extended from skull base to the esophagus. In consultation with OMFS at , it was recommended the patient be admitted for observation and placed on Unasyn intravenous antibiotics with transitioned to oral antibiotics as patient stabilizes for discharge. Repeat CT of soft tissue neck and CT of chest chest confirmed the emphysema was significantly decreasing. Patient's pain was also decreasing over time and the patient was discharged to continue with pain medication oxycodone 5 mg as needed every 4 hours as well as Augmentin 500/125 t.i.d. for 15 doses and fluconazole 100 mg daily for 10 doses. Status at Discharge Cognitive/behavioral status at discharge: at baseline, oriented Functional status at discharge: independent ambulation Overall status at discharge: patient is progressing back to baseline Time Spent with Patient Time spent: Greater than 30 minutes Exam Vital Signs (past 8 hours): - 04/08/23 04:00 04/08/23 04:00 Temperature 96.6 F L Pulse Rate 62 Respiratory Rate 18 Blood Pressure 149/59 H Pulse Oximetry 99 99 Oxygen Delivery Method Room Air Oxygen Flow Rate 0 Oxygen Delivery Method Room Air Oxygen Flow Rate 0 Narrative Exam Narrative: GEN: appears to be in mild discomfort. HEENT: moist mucous membranes, pain with opening her jaw CV: regular rate and rhythm, no murmurs PULM: clear bilaterally, no wheezes, rhonchi, rales ABD: soft, nontender, nondistended EXT: warm and well perfused with no edema NEURO: awake, alert, oriented, no focal deficits Objective Labs 04/06/23 03:55 04/06/23 03:55 PFSH Medical History Multiple sclerosis Social History household members: none Smoking Status: Never smoker alcohol intake: never Discharge Plan Discharge Plan Patient Disposition: Home Discharge orders & Medications Prescriptions: New fluconazole [Diflucan] 100 mg Tablet 100 mg PO DAILY Qty: 10 0RF oxycodone 5 mg Tablet 5 mg PO Q4HR PRN (Reason: Pain, Moderate (4-6)) Qty: 20 0RF amoxicillin-pot clavulanate [Augmentin] 500-125 mg tablet 1 tab PO TID Qty: 15 0RF Continued estradiol 2 mg tablet 2 mg PO QAM duloxetine [Cymbalta] 60 mg capsule,delayed release(DR/EC) 60 mg PO DAILY gabapentin 600 mg tablet 600 mg PO BEDTIME Myrbetriq 50 mg tablet extended release 24 hr 50 mg PO DAILY oxcarbazepine [Trileptal] 150 mg tablet 150 mg PO DAILY tolterodine [Detrol] 2 mg tablet 4 mg PO BEDTIME almotriptan malate 12.5 mg tablet 12.5 mg PO ONCE PRN (Reason: Migraine Headache) clonazepam 1 mg tablet 1 mg PO BEDTIME Rx Instructions: administer 30 minutes before bedtime hydromorphone 4 mg tablet 4 mg PO Q4-6H PRN (Reason: Pain (Scale Score 1-3)) psyllium Packet 1 packet PO DAILY Rx Instructions: mix into at least 8 oz of water or juice before administering clobetasol 0.05 % Cream 1 applic TOPICAL DAILY biotin 1 mg Tablet 1 mg PO DAILY Fergon 225 mg (27 mg iron) Tablet 225 mg PO DAILY cyanocobalamin (vitamin B-12) 5,000 mcg Tablet, Sublingual 5,000 mcg SUBLINGUAL DAILY glatiramer [Copaxone] 40 mg/mL Syringe 40 mg SUBCUT 3XW Rx Instructions: administer doses at least 48 hours apart Glucosamine Chondroitin 550-30-1 mg Capsule 2 cap PO BEDTIME ondansetron 4 mg tablet,disintegrating 4 mg PO TID-QID PRN (Reason: nausea and vomiting) Qty: 10 0RF Follow up/Referrals: Abdoulaye Geronimo DO [Primary Care Provider] - Diet/Activity/Treatments Diet: Diet as Tolerated Visit Report/Discharge Packet Stand Alone Forms: Patient Portal/API, Stroke Signs & Symptoms Discharge Data Primary Care Provider: Abdoulaye Geronimo Attending Provider: Duy Cao Admtorey Date/Time: 04/05/23 19:42
[2023-04-08] MEDS: DULOXETINE 30 MG CAPSULE 60 MG PO (10:42)
[2023-04-08] MEDS: FLUCONAZOLE 100 MG TABLET PO (10:43)
[2023-04-08] MEDS: OXYBUTYNIN 5 MG ER TAB 10 MG PO (10:43)
--- NOTE | 2023-04-08 12:23 | PC.NURSE ---
Patient had no further questions or concerns prior to discharge. Escorted out via wheelchair by [employer] with all her belongings.
== END 2023-04-08 11:45 | disposition home or self-care (01) ==
LOC: ED 19:38 → AC 19:43
PROVIDERS: Admitting Provider Internal Medicine; Emergency Provider Internal Medicine; PCP Family Medicine; Referring Provider Emergency Medicine; Visit Provider Internal Medicine
DX: J98.2 Interstitial emphysema (principal); G35 Multiple sclerosis
CPT/HCPCS: 36415; 70491; 71260; 80048; 80053; 83605; 84145; 85025; 87040; 96365; 96366; 96375; 96376; 99284; G0378; J0295; J1170; J1650; J2270; Q9967

== ENCOUNTER → 2023-04-19 12:46 | Outpatient (CLI) | payer MEDICARE, BC, SELFPAY ==
[2023-04-06 14:27] VITALS: BMI 21.2
--- NOTE | 2023-04-19 | DI.CT.S_ITS ---
PROCEDURE: CT CHEST W CON INDICATIONS: EMPHYSEMA TECHNIQUE: After the administration of intravenous contrast, 5 mm thick sections acquired from the pulmonary apices to the posterior costophrenic angles. 1 mm axial lung, 5 mm thick coronal and sagittal reformats and 7 mm axial MIP were acquired. For radiation dose reduction, the following was used: automated exposure control, adjustment of mA and/or kV according to patient size. COMPARISON: [facility], CT, CT CHEST W CON, 04/05/2023, 14:55. [facility], CT, CT KIDNEY URETER BLADDER (KUB), 03/13/2023, 23:18. [facility], CT, CT CHEST W CON, 04/07/2023, 10:15. FINDINGS: Image quality: Excellent. Lungs and pleura: No acute air space opacities. No pleural effusions or pneumothorax. Central and peripheral airways are patent and normal in caliber. Mediastinum: The previously visualized pneumomediastinum is no longer present. Heart size is normal. No pericardial effusion. No mediastinal or hilar adenopathy by size criteria. Thoracic aorta and central pulmonary arteries are normal in size. Esophagus is normal in caliber. No hiatal hernia. Bones and chest wall: Patient is status post bilateral mastectomy. An enhancing 9 mm soft tissue nodule is present along the right flank (series 2/image 55). No suspicious bony lesions. No vertebral body compression fractures. No axillary or supraclavicular adenopathy by size criteria. Thyroid gland is unremarkable . Abdomen: Visualized upper abdominal solid organs appear normal. Upper abdominal bowel loops are normal in caliber. IMPRESSION: 1. No suspicious pulmonary nodules or acute airspace opacities. No emphysematous change or pulmonary fibrosis. 2. Previously visualized pneumomediastinum has resolved. 3. 9 mm right flank soft tissue nodule. The significance of this finding is unclear; however given the history of breast cancer, short interval follow-up recommended. A baseline ultrasound of this region is recommended to evaluate size and for subsequent follow-up purposes. Dictated by: Heather Schwartz M.D. on 04/19/2023 at 15:31 Approved by: Heather Schwartz M.D. on 04/19/2023 at 15:39
--- NOTE | 2023-04-19 | DI.RAD.S_ITS ---
Bone Density Report Name: ALEXSANDRA CARDENAS Age: 67 Sex: Female Ethnicity: White Date of : 1955 Indication: postmenopausal; screening for osteoporosis; prior fracture; Referring Provider: SNOW SALINAS Study: Bone densitometry was performed. Exam Date: April 19, 2023 Accession number: [id number] Bone Density: Region BMD T-score Z-score Classification AP Spine(L1-L4) 0.993 -0.5 1.3 Normal Femoral Neck (Left) 0.718 -1.2 0.4 Osteopenia Total Hip (Left) 0.838 -0.8 0.4 Normal Femoral Neck (Right) 0.771 -0.7 0.8 Normal Total Hip (Right) 0.841 -0.8 0.4 Normal Total Hip Mean 0.840 -0.8 0.4 Normal World Health Organization criteria for BMD impression classify patients as: Normal (T-score at or above -1.0), Osteopenia (T-score between -1.0 and -2.5), or Osteoporosis (T-score at or below -2.5). 10-year Fracture Risk: FRAX not reported because: Prior hip or vertebral fracture Impression: The patient has low bone mass, based on the Left Femoral Neck T-score. The patient has risk factors, including: previous fracture. Discussion: INCREASED RISK OF FRACTURE DUE TO HISTORY OF FRACTURE. The patient's previous fracture puts the patient at high risk of a future fracture. In untreated patients, the risk of osteoporotic fracture increases approximately two-fold for each 1.0 SD decrease in T-score. Low bone density is not the only risk factor for fracture; also consider factors such as patient's age, frailty or poor health, risk of falling, risk of injury, previous osteoporotic fracture, family history of osteoporosis, cigarette smoking, low body weight, etc. Not everyone with a low trauma fracture has osteoporosis; osteomalacia and other metabolic bone disorders should also be considered. Patients who have osteoporosis should be evaluated for specific diseases and conditions (secondary causes) that may cause or contribute to bone loss and fracture risk. National Osteoporosis Foundation (NOF) recommends pharmacologic intervention for patients with a prior hip or vertebral fracture regardless of BMD T-score. The patient should follow a healthful lifestyle (good nutrition with adequate calcium and vitamin D, and appropriate weight-bearing exercise). Follow-Up: Consider a repeat BMD and Vertebral Fracture Assessment (VFA) exam in 2 years or sooner if medically necessary, to reassess this patient's status. Reported by: BERNARD VASQUEZ M.D. on 04/19/2023 1:53:00 PM.
== END ==
PROVIDERS: PCP Family Medicine; Referring Provider Family Medicine; Visit Provider Family Medicine
DX: M85.852 Other specified disorders of bone density and structure, left thigh (principal); Z13.820 Encounter for screening for osteoporosis; Z78.0 Asymptomatic menopausal state; R19.09 Other intra-abdominal and pelvic swelling, mass and lump; T81.82XD Emphysema (subcutaneous) resulting from a procedure, subsequent encounter; Z85.3 Personal history of malignant neoplasm of breast
CPT/HCPCS: 71260; 77080; Q9967

== ENCOUNTER → 2023-04-24 12:50 | Outpatient (CLI) | payer MEDICARE, BC, SELFPAY ==
[2023-04-06 14:27] VITALS: BMI 21.2
--- NOTE | 2023-04-24 12:56 | DI.US.S_ITS ---
PROCEDURE: US PERIPH VENOUS LOW EXTREM LT INDICATIONS: Please evaluate for DVT TECHNIQUE: Real-time imaging, as well as color and pulse Doppler interrogation, were performed of the lower extremity deep veins from the inguinal ligament to the popliteal fossa. COMPARISON: [facility], CT, CT CHEST W CON, 04/19/2023, 13:39. FINDINGS: The common femoral, femoral and popliteal veins are normally compressible, and free of intraluminal thrombus. Color and pulse Doppler demonstrate normal phasic intraluminal flow. There is normal augmentation response to distal compression maneuver. IMPRESSION: Negative for deep venous thrombosis. Dictated by: Julius Avila M.D. on 04/24/2023 at 13:03 Approved by: Julius Avila M.D. on 04/24/2023 at 13:03
== END ==
PROVIDERS: PCP Family Medicine; Referring Provider Family Medicine; Visit Provider Family Medicine
DX: T81.82XD Emphysema (subcutaneous) resulting from a procedure, subsequent encounter (principal)
CPT/HCPCS: 93971

== ENCOUNTER → 2023-07-12 11:00 | Outpatient (CLI) | payer MEDICARE, BC, SELFPAY ==
[2023-04-06 14:27] VITALS: BMI 21.2
--- NOTE | 2023-07-12 11:03 | DI.CT.S_ITS ---
PROCEDURE: CT CHEST W CON INDICATIONS: HX OF BREAST CANCER; RIGHT FLANK NODULE TECHNIQUE: After the administration of intravenous contrast, 5 mm thick sections acquired from the pulmonary apices to the posterior costophrenic angles. 1 mm axial lung, 5 mm thick coronal and sagittal reformats and 7 mm axial MIP were acquired. For radiation dose reduction, the following was used: automated exposure control, adjustment of mA and/or kV according to patient size. COMPARISON: [facility], US, US ABDOMEN LIMITED, 07/12/2023, 12:27. [facility], CT, CT KIDNEY URETER BLADDER (KUB), 03/13/2023, 23:18. [facility], CT, CT CHEST W CON, 04/19/2023, 13:39. [facility], CT, CT CHEST W CON, 04/07/2023, 10:15. FINDINGS: Image quality: Excellent. Lungs and pleura: No acute air space opacities. No pleural effusions or pneumothorax. Central and peripheral airways are patent and normal in caliber. Mediastinum: Heart size is normal. No pericardial effusion. No mediastinal or hilar adenopathy by size criteria. Thoracic aorta and central pulmonary arteries are normal in size. Esophagus is normal in caliber. No hiatal hernia. Bones and chest wall: No suspicious bony lesions. No vertebral body compression fractures. No axillary or supraclavicular adenopathy by size criteria. Thyroid gland appears normal where well seen. The sharply demarcated small right lateral lower chest wall soft tissue nodule is again noted, visible also on the earliest available CT scan that includes this area dated 03/13/23. No new soft tissue nodule elsewhere has developed. Abdomen: Visualized upper abdominal solid organs appear normal. Upper abdominal bowel loops are normal in caliber. IMPRESSION: Stable 8 x 9 mm small soft tissue nodule within the lower right lateral chest wall which also was evaluated by ultrasound same day, identifying a normal appearing lymph node by report. Dictated by: Walker Beard M.D. on 07/12/2023 at 13:40 Approved by: Walker Beard M.D. on 07/12/2023 at 13:53
--- NOTE | 2023-07-12 11:04 | DI.US.S_ITS ---
PROCEDURE: US ABDOMEN LIMITED INDICATIONS: HX OF BREAST CANCER; RIGHT FLANK NODULE TECHNIQUE: Real-time focused scanning was performed of the abdomen, with image documentation. COMPARISON: [facility], CT, CT CHEST W [facility], 07/12/2023, 12:27. FINDINGS: Scanning is performed at the area of clinical concern within the right flank. At this site, there is a hypoechoic lesion seen, with a hyperechoic fatty hilum that measures 9 x 9 x 7 mm. IMPRESSION: Normal size, normal appearing lymph node seen at the site of clinical concern until proven otherwise. If it would be helpful for clinical management decision making, please consider percutaneous ultrasound-guided biopsy. Dictated by: Julius Avila M.D. on 07/12/2023 at 12:32 Approved by: Julius Avila M.D. on 07/12/2023 at 12:33
[2023-07-12 12:17] LABS: Estimated Glomerular Filt Rate > 60 mL/min (>60)
== END ==
PROVIDERS: Specialist; PCP Family Medicine; Referring Provider Family Medicine; Visit Provider Family Medicine
DX: R22.2 Localized swelling, mass and lump, trunk (principal); Z85.3 Personal history of malignant neoplasm of breast; T79.7XXA Traumatic subcutaneous emphysema, initial encounter
CPT/HCPCS: 36415; 71260; 76705; 82565; Q9967

== ENCOUNTER → 2023-08-06 08:51 | Outpatient (CLI) | payer MEDICARE, BC, SELFPAY ==
[2023-04-06 14:27] VITALS: BMI 21.2
--- NOTE | 2023-08-06 | PATH_ITS ---
[facility] Accession Number: [id number] No. of containers..01 Tissue . 01 Material submitted: . lymph node - RIGHT LATERAL CHEST WALL/RIGHT SUPERIOR FLANK LYMPH NODE . 01 Diagnosis: LYMPH NODE, RIGHT LATERAL CHEST WALL/RIGHT SUPERIOR FLANK LYMPH NODE, CORE BIOPSIES: - BENIGN LYMPHOID AGGREGATES IN SMALL BIOPSIES. - SEE COMMENT AND MICROSCOPIC EXAMINATION. --- Comment: Overall assessment of histology and concurrent flow cytometry analysis is consistent with benign lymphoid aggregates, however given the small biopsy size, a sampling bias is possible, therefore if there is clinical suspicion for malignancy, an excisional biopsy would be recommended. TXN 08/13/2023 1323 Local . 01 Electronically signed: . Thuy Phillips MD, Pathologist NPI- [id number] . 01 Gross description: . RIGHT LATERAL CHEST WALL/RIGHT SUPERIOR FLANK LYMPH NODE: Received in formalin are 4 fragment(s) of johnson, soft tissue measuring 0.2 x 0.1 x 0.1 cm to 0.3 x 0.1 x 0.1 cm submitted entirely in 1 cassette(s) /PAUL 08/07/2023 0024 Local . 01 Microscopic: . MICROSCOPIC EXAMINATION: Histologic examination of the right lateral chest wall/right superior flank lymph node shows small fragments of lymphoid aggregates, occasional small follicles, with no geminal centers seen. Negative for atypical large cells, granulomas, or necrosis. --- IMMUNOHISTOCHEMICAL STAINS PERFORMED WITH APPROPRIATE CONTROLS SHOW: Preserved B and T cells compartments. CD3, CD5 highlight unremarkable T cells within interfollicular spaces. CD20, PAX-5: Highlights small primary follicles. BCL-2 highlights T cells, and B cells in primary follicles. BCL-6 and CD10 highlight very small geminal center in one of the follicles which is negative for BCL-2. Ki-67 shows normal low proliferation rate <5% Cyclin-D1: Is negative in lymphocytes. CD21: Highlight normal dendritic cells meshwork in primary follicles. PRUDENCIO keratin: Is negative. --- Technical Note: The immunohistochemical stains reported were performed at [facility] ([address] [place] [address] [address], [facility] [address]). They were developed and their performance characteristics determined by [employer] They have not been cleared or approved by the U.S. Food and Drug Administration, although such approval is not required for analyte-specific reagents of this type. . . 01 Pathologist provided ICD-10: D47.Z9 . 01 CPT . 229812, J00035, Q36414 Specimen Comment: A courtesy copy of this report has been sent to [facility] Performed at: 01 [facility] [address] [place] [address] [address], [place], [place] [id number] MD Vishal oLndono MD Phone: [phone]
--- NOTE | 2023-08-06 | DI.US.S_ITS ---
PROCEDURE: US BIOPSY LYMPH NODE INDICATIONS: RIGHT LATERAL CHEST WALL/SUPERIOR FLANK LYMPHNODE BIOPSY TECHNIQUE: The indications, alternatives, benefits, risks, and complications of the procedure were explained to the patient. Written informed consent was obtained and placed in the chart. Real-time sonography was utilized to choose the site for percutaneous lymph node sampling. The skin was prepped and draped in the usual sterile fashion. 1% lidocaine was infiltrated down to the site of interest. A coaxial needle was then advanced into the site of interest under direct sonographic visualization. A biopsy apparatus was then utilized, and core biopsies were obtained. The needle was then withdrawn; a bandage was applied to the biopsy site. COMPARISON: None. FINDINGS: Biopsy site(s): Right lateral chest wall Needle: NanoVasc[employer] biopsy needle set. Number of passes: 6 Medications: 1% lidocaine for local anaesthesia. Complications: None. IMPRESSION: Successful ultrasound-guided a right lateral chest wall lymph node biopsy, with pathology results pending. Dictated by: Darius Silver M.D. on 08/07/2023 at 13:29 Approved by: Darius Silver M.D. on 08/07/2023 at 13:31
== END ==
PROVIDERS: PCP Family Medicine; Referring Provider Family Medicine; Visit Provider Family Medicine
DX: D47.Z9 Other specified neoplasms of uncertain behavior of lymphoid, hematopoietic and related tissue (principal)
CPT/HCPCS: 38505; 76942

== ENCOUNTER 2024-04-28 12:32 | Emergency (ER) | payer MEDICARE, BC, SELFPAY ==
[2023-04-06 14:27] VITALS: BMI 21.2
[2024-04-28 12:34] VITALS: BP 143/65; PULSE 77; RESP 18; TEMP 36.6; O2SAT 96; BMI 20.2
[2024-04-28 12:45] VITALS: PULSE 75; RESP 18; O2SAT 100
--- NOTE | 2024-04-28 12:57 | EKG_ITS ---
[address] [address] Test Date: 2024-04-28 Pat Name: Reyna Meadows Department: [facility] Room: Gender: Female [employer] Consultant: JACQUI : 1955 Requested By: Order Number: [id number] Reading MD: Lucio Lynne MD Measurements Intervals [place] Rate: 74 P: 85 MS: 150 QRS: 46 QRSD: 70 T: 60 QT: 396 QTc: 439 Interpretive Statements Sinus rhythm with premature atrial complexes Electronically Signed On 04-28-2024 14:03:21 PDT by Lucio Lynne MD
[2024-04-28 13:00] VITALS: BP 124/59; PULSE 73; RESP 20; O2SAT 99
--- NOTE | 2024-04-28 13:09 | ED_ITS ---
HPI - Skin/Abscess/Foreign Bdy <Sergio Cantu PA-C - Last Filed: 04/28/24 14:26> General Chief complaint: Skin/Abscess/Foreign Body Stated complaint: cellulities Rt arm Time Seen by Provider: 04/28/24 12:46 Source: patient Mode of arrival: Family Vehicle Limitations: no limitations History of Present Illness HPI narrative: 68-year-old female with past medical history multiple sclerosis presents to the ED with a right forearm wound. Patient states that [place] skin tear. While it was initially healing well, over the last few days, patient has noticed worsening erythema, pustules around the wound. It is painful to touch. No fever, chills, nausea, vomiting. No known history of MRSA. Related Data Home Medications Medication Instructions Recorded Confirmed almotriptan malate 12.5 mg tablet 12.5 mg PO ONCE PRN Migraine 04/04/23 04/05/23 Headache clonazepam 1 mg tablet 1 mg PO BEDTIME 04/04/23 04/05/23 duloxetine 60 mg capsule,delayed 60 mg PO DAILY 04/04/23 04/05/23 release (Cymbalta) estradiol 2 mg tablet 2 mg PO QAM 04/04/23 04/05/23 gabapentin 600 mg tablet 600 mg PO BEDTIME 04/04/23 04/05/23 hydromorphone 4 mg tablet 4 mg PO Q4-6H PRN Pain (Scale 04/04/23 04/05/23 Score 1-3) mirabegron 50 mg tablet,extended 50 mg PO DAILY 04/04/23 04/05/23 release 24 hr (Myrbetriq) oxcarbazepine 150 mg tablet 150 mg PO DAILY 04/04/23 04/05/23 (Trileptal) tolterodine 2 mg tablet (Detrol) 4 mg PO BEDTIME 04/04/23 04/05/23 biotin 1 mg tablet 1 mg PO DAILY 04/05/23 04/05/23 clobetasol 0.05 % topical cream 1 applic topical DAILY 04/05/23 04/05/23 cyanocobalamin (vitamin B-12) 5,000 mcg sublingual DAILY 04/05/23 04/05/23 5,000 mcg sublingual tablet ferrous gluconate 225 mg (27 mg 225 mg PO DAILY 04/05/23 04/05/23 iron) tablet (Fergon) glatiramer 40 mg/mL subcutaneous 40 mg SUBCUT 3XW 04/05/23 04/05/23 syringe (Copaxone) glucosamine sulf dipot 2 cap PO BEDTIME 04/05/23 04/05/23 chlr,msm,chond 550 mg-C 30 mg-ning 1 mg capsule (Glucosamine Chondroitin) psyllium 1 packet PO DAILY 04/05/23 04/05/23 duloxetine 30 mg capsule,delayed 30 mg PO ONCE PM 04/28/24 04/28/24 release duloxetine 60 mg capsule,delayed 60 mg PO DAILY 04/28/24 04/28/24 release ketoconazole 2 % shampoo topical 04/28/24 loperamide 2 mg capsule mg PO 04/28/24 Previous Rx's Medication Instructions Recorded ondansetron 4 mg disintegrating 4 mg PO TID-QID PRN nausea and 05/04/19 tablet vomiting #10 tabs amoxicillin 500 mg-potassium 1 tab PO TID #15 tabs 04/08/23 clavulanate 125 mg tablet (Augmentin) fluconazole 100 mg tablet 100 mg PO DAILY #10 tabs 04/08/23 (Diflucan) oxycodone 5 mg tablet 5 mg PO Q4HR PRN Pain, Moderate 04/08/23 (4-6) #20 tabs cephalexin 500 mg capsule 500 mg PO QID 7 days #28 caps 04/28/24 doxycycline hyclate 100 mg tablet 100 mg PO BID 7 days #14 tabs 04/28/24 fluconazole 100 mg tablet 100 mg PO DAILY 10 days #10 tabs 04/28/24 fluconazole 200 mg tablet 200 mg PO DAILY 10 days #10 tabs 04/28/24 Allergies Allergy/AdvReac Type Severity Reaction Status Date / Time codeine Allergy Unknown Verified 04/05/23 11:50 prochlorperazine Allergy Unknown Verified 04/05/23 11:50 baclofen Allergy Verified 04/05/23 11:50 ketorolac Allergy Verified 04/05/23 11:50 tizanidine [From Zanaflex] Allergy Verified 04/05/23 11:50 NSAIDS (Non-Steroidal AdvReac Unknown Verified 04/05/23 11:50 Anti-Inflamma prednisone AdvReac Unknown Verified 04/05/23 11:50 tramadol AdvReac Unknown Verified 04/05/23 11:50 oral steroids AdvReac Uncoded 03/13/23 22:43 Review of Systems <Sergio Cantu PA-C - Last Filed: 04/28/24 14:26> Constitutional Constitutional: Denies chills, Denies fatigue, Denies fever(s), Denies frequent falls, Denies lethargy and Denies weakness Eyes Eyes: Denies change in vision, Denies eye discharge, Denies irritation and Denies loss of vision ENT Ears, Nose, Mouth, and Throat: Denies change in voice, Denies dizziness, Denies neck pain, Denies sore throat and Denies throat swelling Cardiovascular Cardiovascular: Denies chest pain, Denies irregular heart rhythm, Denies lightheadedness, Denies palpitations, Denies dyspnea, Denies dyspnea on exertion and Denies orthopnea Respiratory Respiratory: Denies cough, Denies dyspnea, Denies dyspnea on exertion and Denies wheezing Gastrointestinal Gastrointestinal: Denies abdominal pain, Denies change in bowel habits, Denies diarrhea, Denies nausea and Denies vomiting Musculoskeletal Musculoskeletal: Denies neck pain and Denies numbness Integumentary/Breasts Skin/Breast: Denies pruritus, Denies erythema, Denies rash and Reports wounds Neurologic Neurologic: Denies behavioral changes, Denies confusion, Denies dizziness, Denies frequent falls, Denies loss of vision, Denies numbness and Denies weakness Psychiatric Psychiatric: Denies anxiety, Denies behavioral changes, Denies confusion, Denies depression, Denies homicidal ideation and Denies suicidal ideation Endocrine Endocrine: Denies fatigue, Denies flushing and Denies palpitations Hematologic/Lymphatic Hematologic/Lymphatic: Denies easy bruising Allergic/Immunologic Allergic/Immunologic: Denies urticaria, Denies throat swelling and Denies wheezing Patient History <Sergio Cantu PA-C - Last Filed: 04/28/24 14:26> Medical History (Updated 04/28/24 @ 13:28 by Sergio Cantu PA-C) Multiple sclerosis Social History household members: none Smoking Status: Never smoker alcohol intake: never Smoking Status: Never smoker alcohol intake frequency: 0-2 drinks per day Substance Use Type: does not use Exam <Sergio Cantu PA-C - Last Filed: 04/28/24 14:26> Narrative Exam Narrative: Const General:?cooperative, healthy appearing and comfortable [facility] Head:?normal to inspection Ears:?hearing grossly normal bilaterally Nose:?external nose normal Face and sinus:?normal facial exam and sinuses nontender Mouth:?oral mucosae normal Throat:?posterior oropharynx normal Eyes General:?appearance normal, both eyes and all related structures Neck Neck:?normal visual inspection and no lymphadenopathy noted Resp Effort & Inspection:?normal respiratory effort Auscultation:?clear to auscultation bilaterally Cardio Rate:?regular rate Rhythm:?regular rhythm Integumentary The site of the wound appears erythematous, tender to touch. There are multiple purulent wounds, including the original skin tear. There is overlying erythema which is streaking proximally towards the elbow. Neuro General:?patient alert, patient awake and patient oriented x3 Initial Vital Signs Initial Vital Signs: Vital Signs Temperature 97.8 F 04/28/24 12:34 Pulse Rate 77 04/28/24 12:34 Respiratory Rate 18 04/28/24 12:34 Blood Pressure 143/65 H 04/28/24 12:34 Pulse Oximetry 96 04/28/24 12:34 Oxygen Delivery Method Room Air 04/28/24 12:34 <Richa De Los Santos DO - Last Filed: 04/29/24 07:09> Initial Vital Signs Initial Vital Signs: Vital Signs Temperature 97.8 F 04/28/24 12:34 Pulse Rate 77 04/28/24 12:34 Respiratory Rate 18 04/28/24 12:34 Blood Pressure 143/65 H 04/28/24 12:34 Pulse Oximetry 96 04/28/24 12:34 Oxygen Delivery Method Room Air 04/28/24 12:34 Course <ANNA Gutierrez Last Filed: 04/28/24 14:26> Orders Ordered: ED Orders 04/28/24 12:50 EKG-12 Lead Stat 04/28/24 13:12 Wound Culture and Gram Stain Stat Vital Signs Vital signs: Vital Signs - 8 hr 04/28/24 12:34 04/28/24 12:45 04/28/24 13:00 Temperature 97.8 F Pulse Rate 77 75 73 Respiratory Rate 18 18 20 Blood Pressure 143/65 H Pulse Oximetry 96 100 99 Oxygen Delivery Method Room Air 04/28/24 13:00 Temperature Pulse Rate Respiratory Rate Blood Pressure 124/59 L Pulse Oximetry Oxygen Delivery Method <Richa De Los Santos DO - Last Filed: 04/29/24 07:09> Orders Ordered: ED Orders 04/28/24 12:50 EKG-12 Lead Stat 04/28/24 13:12 Wound Culture and Gram Stain Stat Vital Signs Vital signs: Vital Signs - 8 hr 04/28/24 12:34 04/28/24 12:45 04/28/24 13:00 Temperature 97.8 F Pulse Rate 77 75 73 Respiratory Rate 18 18 20 Blood Pressure 143/65 H Pulse Oximetry 96 100 99 Oxygen Delivery Method Room Air 04/28/24 13:00 Temperature Pulse Rate Respiratory Rate Blood Pressure 124/59 L Pulse Oximetry Oxygen Delivery Method MDM - Skin/Abscess/Foreign Bdy <Sergio Cantu PA-C - Last Filed: 04/28/24 14:26> MDM Narrative Medical decision making narrative: 68-year-old female with past medical history multiple sclerosis presents to the ED with a right forearm wound. Presentation consistent with cellulitis, likely MRSA/MSSA, given purulent wounds. Sample sent for wound culture. Will prescribe antibiotics. Patient also has a history of esophageal cancer, tends to get esophagitis when on antibiotics. Patient request fluconazole during antibiotic therapy. Prescribed fluconazole. Patient's wound margins were marked with a skin marker. Patient agrees to monitor the wound and return to the ED if it appears to be worsening. Recommend follow-up with PCP. ED return precautions discussed with patient. Patient verbalized understanding. Medical records reviewed: Yes Discharge Plan Departure Patient Disposition: Home Clinical Impression: Cellulitis Qualifiers: Site of cellulitis: extremity Site of cellulitis of extremity: upper extremity Laterality: right Qualified Code(s): L03.113 - Cellulitis of right upper limb Instructions: DI for Cellulitis -- Adult Activity Restrictions/Additional Instructions: You were evaluated in the ED today for a wound on your forearm. It appears that you have a skin infection/cellulitis for which you are being prescribed antibiotics. Please take those as prescribed. You were also being prescribed fluconazole as a preventative measure since you tend to have esophagitis when on antibiotics. Please monitor the wound to ensure that it is healing well and that the redness started subsiding over the next 2-3 days. Return to the ED if you have worsening symptoms, fever, chills, nausea, vomiting. Please follow-up with your PCP as soon as possible. Prescriptions: New doxycycline hyclate 100 mg tablet 100 mg PO BID 7 Days Qty: 14 0RF cephalexin 500 mg capsule 500 mg PO QID 7 Days Qty: 28 0RF fluconazole 100 mg tablet 100 mg PO DAILY 10 Days Qty: 10 0RF fluconazole 200 mg tablet 200 mg PO DAILY 10 Days Qty: 10 0RF No Action estradiol 2 mg tablet 2 mg PO QAM duloxetine [Cymbalta] 60 mg capsule,delayed release(DR/EC) 60 mg PO DAILY gabapentin 600 mg tablet 600 mg PO BEDTIME Myrbetriq 50 mg tablet extended release 24 hr 50 mg PO DAILY oxcarbazepine [Trileptal] 150 mg tablet 150 mg PO DAILY tolterodine [Detrol] 2 mg tablet 4 mg PO BEDTIME almotriptan malate 12.5 mg tablet 12.5 mg PO ONCE PRN (Reason: Migraine Headache) clonazepam 1 mg tablet 1 mg PO BEDTIME Rx Instructions: administer 30 minutes before bedtime hydromorphone 4 mg tablet 4 mg PO Q4-6H PRN (Reason: Pain (Scale Score 1-3)) psyllium Packet 1 packet PO DAILY Rx Instructions: mix into at least 8 oz of water or juice before administering clobetasol 0.05 % Cream 1 applic TOPICAL DAILY biotin 1 mg Tablet 1 mg PO DAILY Fergon 225 mg (27 mg iron) Tablet 225 mg PO DAILY cyanocobalamin (vitamin B-12) 5,000 mcg Tablet, Sublingual 5,000 mcg SUBLINGUAL DAILY glatiramer [Copaxone] 40 mg/mL Syringe 40 mg SUBCUT 3XW Rx Instructions: administer doses at least 48 hours apart Glucosamine Chondroitin 550-30-1 mg Capsule 2 cap PO BEDTIME fluconazole [Diflucan] 100 mg Tablet 100 mg PO DAILY Qty: 10 0RF oxycodone 5 mg Tablet 5 mg PO Q4HR PRN (Reason: Pain, Moderate (4-6)) Qty: 20 0RF amoxicillin-pot clavulanate [Augmentin] 500-125 mg tablet 1 tab PO TID Qty: 15 0RF duloxetine 60 mg capsule,delayed release(DR/EC) 60 mg PO DAILY duloxetine 30 mg capsule,delayed release(DR/EC) 30 mg PO ONCE PM ketoconazole 2 % shampoo topical loperamide 2 mg capsule PO ondansetron 4 mg tablet,disintegrating 4 mg PO TID-QID PRN (Reason: nausea and vomiting) Qty: 10 0RF Referrals: Abdoulaye Geronimo DO [Primary Care Provider] - Stand Alone Forms: Patient Portal/API ED Sign-out <Richa De Los Santos DO - Last Filed: 04/29/24 07:09> Cosign ED Attending Cosignature Attestation: I was immediately available in the department for consultation.
== END 2024-04-28 13:35 | disposition home or self-care (01) ==
PROVIDERS: Emergency Provider Student in an Organized Health Care Education/Training Program; PCP Family Medicine
DX: L03.113 Cellulitis of right upper limb (principal); R07.9 Chest pain, unspecified; Z79.899 Other long term (current) drug therapy
CPT/HCPCS: 87070; 87077; 87147; 87186; 87205; 93005; 93010; 99281; 99283

== ENCOUNTER 2024-05-04 23:52 | Emergency (ER) | payer MEDICARE, BC, SELFPAY ==
[2023-04-06 14:27] VITALS: BMI 21.2
--- NOTE | 2024-05-04 | DI.CT.S_ITS ---
PROCEDURE: CT CERVICAL SPINE WO CON INDICATIONS: Fall, pain TECHNIQUE: Noncontrast 3 mm thick sections acquired from the skull base to the T4 level. Sagittal and coronal reformats were then constructed. For radiation dose reduction, the following was used: automated exposure control, adjustment of mA and/or kV according to patient size. COMPARISON: [facility], CT, CT SOFT TISSUE NECK W CON, 04/07/2023, 10:15. FINDINGS: Image quality: Diagnostic Bones: No acute fractures or dislocations. No acute compression fractures of the vertebral bodies. Craniocervical junction is intact. C1-C2 relationship is preserved. Visualized superior ribs are intact. Mild multilevel cervical spondylosis. Mild straightening of normal cervical lordosis similar to prior study. This may be related to positioning versus concurrent muscle spasms.. Soft tissues: Prevertebral soft tissues are normal in thickness. No paravertebral hematomas. No apical pneumothoraces. IMPRESSION: CT cervical spine without acute fracture or traumatic malalignment. Dictated by: Flakito Loyd M.D. on 05/05/2024 at 0:21 Approved by: Flakito Loyd M.D. on 05/05/2024 at 0:24
--- NOTE | 2024-05-04 | DI.CT.S_ITS ---
PROCEDURE: CT HEAD/BRAIN WO CON INDICATIONS: Fall, pain TECHNIQUE: Noncontrast 4.5 mm thick angled axial sections acquired from the foramen magnum to the vertex, with coronal and sagittal reformats. For radiation dose reduction, the following was used: automated exposure control, adjustment of mA and/or kV according to patient size. COMPARISON: [facility], CT, CT HEAD/BRAIN WO/W CON, 10/23/2022, 12:19. FINDINGS: Image quality: Diagnostic. CSF spaces: Basal cisterns are patent. No extra-axial fluid collections. The ventricles are symmetric in size and shape. Brain: No intracranial bleeds or masses. There is cerebral volume loss for age, with resultant ventricular and sulcal prominence. There are periventricular and deep white matter chronic small vessel ischemic changes. There is intracranial internal carotid artery atherosclerosis. Skull and face: Calvarium and visualized facial bones appear intact, without suspicious lesions. Sinuses: Visualized sinuses and mastoids are clear. IMPRESSION: 1. CT head without acute intracranial abnormalities or acute calvarial fractures. 2. Age-related senescent changes and sequela of chronic small vessel ischemic disease. Dictated by: Flakito Loyd M.D. on 05/05/2024 at 0:18 Approved by: Flakito Loyd M.D. on 05/05/2024 at 0:20
[2024-05-04 23:57] VITALS: BP 122/60; PULSE 72; RESP 16; TEMP 36.2; O2SAT 99; BMI 20.2
--- NOTE | 2024-05-05 08:27 | ED_ITS ---
HPI - Fall General Chief Complaint: Fall Stated Complaint: GLF Time Seen by Provider: 05/05/24 08:16 Source: patient Mode of arrival: EMS History of Present Illness HPI Narrative: Patient presents for head injury last night. Patient walks with a cane at baseline, she states that she lost her balance and fell backwards, striking the back of her head against the corner of a wall. She states that the wall was dented and she had bleeding on her head. She states she has had a tetanus shot within the last 5 years. Denies use of blood thinners. Related Data Home Medications Medication Instructions Recorded Confirmed almotriptan malate 12.5 mg tablet 12.5 mg PO ONCE PRN Migraine 04/04/23 04/05/23 Headache clonazepam 1 mg tablet 1 mg PO BEDTIME 04/04/23 04/05/23 duloxetine 60 mg capsule,delayed 60 mg PO DAILY 04/04/23 04/05/23 release (Cymbalta) estradiol 2 mg tablet 2 mg PO QAM 04/04/23 04/05/23 gabapentin 600 mg tablet 600 mg PO BEDTIME 04/04/23 04/05/23 hydromorphone 4 mg tablet 4 mg PO Q4-6H PRN Pain (Scale 04/04/23 04/05/23 Score 1-3) mirabegron 50 mg tablet,extended 50 mg PO DAILY 04/04/23 04/05/23 release 24 hr (Myrbetriq) oxcarbazepine 150 mg tablet 150 mg PO DAILY 04/04/23 04/05/23 (Trileptal) tolterodine 2 mg tablet (Detrol) 4 mg PO BEDTIME 04/04/23 04/05/23 biotin 1 mg tablet 1 mg PO DAILY 04/05/23 04/05/23 clobetasol 0.05 % topical cream 1 applic topical DAILY 04/05/23 04/05/23 cyanocobalamin (vitamin B-12) 5,000 mcg sublingual DAILY 04/05/23 04/05/23 5,000 mcg sublingual tablet ferrous gluconate 225 mg (27 mg 225 mg PO DAILY 04/05/23 04/05/23 iron) tablet (Fergon) glatiramer 40 mg/mL subcutaneous 40 mg SUBCUT 3XW 04/05/23 04/05/23 syringe (Copaxone) glucosamine sulf dipot 2 cap PO BEDTIME 04/05/23 04/05/23 chlr,msm,chond 550 mg-C 30 mg-ning 1 mg capsule (Glucosamine Chondroitin) psyllium 1 packet PO DAILY 04/05/23 04/05/23 duloxetine 30 mg capsule,delayed 30 mg PO ONCE PM 04/28/24 04/28/24 release duloxetine 60 mg capsule,delayed 60 mg PO DAILY 04/28/24 04/28/24 release ketoconazole 2 % shampoo topical 04/28/24 loperamide 2 mg capsule mg PO 04/28/24 Previous Rx's Medication Instructions Recorded ondansetron 4 mg disintegrating 4 mg PO TID-QID PRN nausea and 05/04/19 tablet vomiting #10 tabs amoxicillin 500 mg-potassium 1 tab PO TID #15 tabs 04/08/23 clavulanate 125 mg tablet (Augmentin) fluconazole 100 mg tablet 100 mg PO DAILY #10 tabs 04/08/23 (Diflucan) oxycodone 5 mg tablet 5 mg PO Q4HR PRN Pain, Moderate 04/08/23 (4-6) #20 tabs cephalexin 500 mg capsule 500 mg PO QID 7 days #28 caps 04/28/24 doxycycline hyclate 100 mg tablet 100 mg PO BID 7 days #14 tabs 04/28/24 fluconazole 100 mg tablet 100 mg PO DAILY 10 days #10 tabs 04/28/24 fluconazole 200 mg tablet 200 mg PO DAILY 10 days #10 tabs 04/28/24 Allergies Allergy/AdvReac Type Severity Reaction Status Date / Time codeine Allergy Unknown Verified 04/05/23 11:50 prochlorperazine Allergy Unknown Verified 04/05/23 11:50 baclofen Allergy Verified 04/05/23 11:50 ketorolac Allergy Verified 04/05/23 11:50 tizanidine [From Zanaflex] Allergy Verified 04/05/23 11:50 NSAIDS (Non-Steroidal AdvReac Unknown Verified 04/05/23 11:50 Anti-Inflamma prednisone AdvReac Unknown Verified 04/05/23 11:50 tramadol AdvReac Unknown Verified 04/05/23 11:50 oral steroids AdvReac Uncoded 03/13/23 22:43 Patient History Medical History Multiple sclerosis Social History household members: none Smoking Status: Never smoker alcohol intake: never Smoking Status: Never smoker alcohol intake frequency: 0-2 drinks per day Substance Use Type: does not use Exam Initial Vital Signs Initial Vital Signs: Vital Signs Temperature 97.2 F L 05/04/24 23:57 Pulse Rate 72 05/04/24 23:57 Respiratory Rate 16 05/04/24 23:57 Blood Pressure 122/60 05/04/24 23:57 Pulse Oximetry 99 05/04/24 23:57 Oxygen Delivery Method Room Air 05/04/24 23:57 Const: Awake, alert, no acute distress, nontoxic appearing Skin: Warm, Dry, 2 cm vertical laceration left occipital scalp Neuro: AO x3, CN II-XII grossly intact, moves all extremities Procedures Laceration Repair Laceration 1: Site: scalp Side (If applicable): left Size (cm): 2 Description: linear Depth: simple, single layer Pre-repair: wound explored and irrigated extensively Skin layer closed with: elizabeth Number of sutures: 3 Course Orders Ordered: Discontinued Medications Hydrocodone Bitart/Acetaminophen (Hydrocodone/Acet 5/325 Tablet) 1 tab PO NOW ONE Stop: 05/05/24 08:22 Last Admin: 05/05/24 08:33 Dose: 1 tab Documented By: ELKE MDM - Fall Imaging Data CT - cervical spine: Radiologist's Impression: PROCEDURE: CT CERVICAL SPINE WO CON INDICATIONS: Fall, pain TECHNIQUE: Noncontrast 3 mm thick sections acquired from the skull base to the T4 level. Sagittal and coronal reformats were then constructed. For radiation dose reduction, the following was used: automated exposure control, adjustment of mA and/or kV according to patient size. COMPARISON: [facility], CT, CT SOFT TISSUE NECK W CON, 04/07/2023, 10:15. FINDINGS: Image quality: Diagnostic Bones: No acute fractures or dislocations. No acute compression fractures of the vertebral bodies. Craniocervical junction is intact. C1-C2 relationship is preserved. Visualized superior ribs are intact. Mild multilevel cervical spondylosis. Mild straightening of normal cervical lordosis similar to prior study. This may be related to positioning versus concurrent muscle spasms.. Soft tissues: Prevertebral soft tissues are normal in thickness. No paravertebral hematomas. No apical pneumothoraces. IMPRESSION: CT cervical spine without acute fracture or traumatic malalignment. Dictated by: Flakito Loyd M.D. on 05/05/2024 at 0:21 Approved by: Flakito Loyd M.D. on 05/05/2024 at 0:24 CT scan - head: Radiologist's Impression: PROCEDURE: CT HEAD/BRAIN WO CON INDICATIONS: Fall, pain TECHNIQUE: Noncontrast 4.5 mm thick angled axial sections acquired from the foramen magnum to the vertex, with coronal and sagittal reformats. For radiation dose reduction, the following was used: automated exposure control, adjustment of mA and/or kV according to patient size. COMPARISON: [facility], CT, CT HEAD/BRAIN WO/W CON, 10/23/2022, 12:19. FINDINGS: Image quality: Diagnostic. CSF spaces: Basal cisterns are patent. No extra-axial fluid collections. The ventricles are symmetric in size and shape. Brain: No intracranial bleeds or masses. There is cerebral volume loss for age, with resultant ventricular and sulcal prominence. There are periventricular and deep white matter chronic small vessel ischemic changes. There is intracranial internal carotid artery atherosclerosis. Skull and face: Calvarium and visualized facial bones appear intact, without suspicious lesions. Sinuses: Visualized sinuses and mastoids are clear. IMPRESSION: 1. CT head without acute intracranial abnormalities or acute calvarial fractures. 2. Age-related senescent changes and sequela of chronic small vessel ischemic disease. Dictated by: Flakito Loyd M.D. on 05/05/2024 at 0:18 Approved by: Flakito Loyd M.D. on 05/05/2024 at 0:20 [facility] Narrative Medical decision making narrative: Well-appearing patient presenting for evaluation after head injury. No neurologic deficits, patient walks with a cane at baseline. CT brain and C- spine negative for acute findings. Patient given hydrocodone for pain while in the emergency department. Wound repaired with 3 elizabeth per procedure note. Wound care instructions discussed at bedside. Discharge Plan Departure Patient Disposition: Home Clinical Impression: Laceration of scalp Qualifiers: Encounter type: initial encounter Qualified Code(s): S01.01XA - Laceration without foreign body of scalp, initial encounter Instructions: DI for Laceration Repair -- Elizbaeth Activity Restrictions/Additional Instructions: Your head and neck CT scans were normal today, they did not show any fractures or bleeds. The laceration on your scalp was addressed with 3 elizabeth. Keep these clean and dry. If you shower do not scrub the area, pat dry gently to prevent pulling on the elizabeth. These will need to be removed in 10 days. Take Tylenol as needed for pain and apply ice for swelling. Prescriptions: No Action estradiol 2 mg tablet 2 mg PO QAM duloxetine [Cymbalta] 60 mg capsule,delayed release(DR/EC) 60 mg PO DAILY gabapentin 600 mg tablet 600 mg PO BEDTIME Myrbetriq 50 mg tablet extended release 24 hr 50 mg PO DAILY oxcarbazepine [Trileptal] 150 mg tablet 150 mg PO DAILY tolterodine [Detrol] 2 mg tablet 4 mg PO BEDTIME almotriptan malate 12.5 mg tablet 12.5 mg PO ONCE PRN (Reason: Migraine Headache) clonazepam 1 mg tablet 1 mg PO BEDTIME Rx Instructions: administer 30 minutes before bedtime hydromorphone 4 mg tablet 4 mg PO Q4-6H PRN (Reason: Pain (Scale Score 1-3)) psyllium Packet 1 packet PO DAILY Rx Instructions: mix into at least 8 oz of water or juice before administering clobetasol 0.05 % Cream 1 applic TOPICAL DAILY biotin 1 mg Tablet 1 mg PO DAILY Fergon 225 mg (27 mg iron) Tablet 225 mg PO DAILY cyanocobalamin (vitamin B-12) 5,000 mcg Tablet, Sublingual 5,000 mcg SUBLINGUAL DAILY glatiramer [Copaxone] 40 mg/mL Syringe 40 mg SUBCUT 3XW Rx Instructions: administer doses at least 48 hours apart Glucosamine Chondroitin 550-30-1 mg Capsule 2 cap PO BEDTIME fluconazole [Diflucan] 100 mg Tablet 100 mg PO DAILY Qty: 10 0RF oxycodone 5 mg Tablet 5 mg PO Q4HR PRN (Reason: Pain, Moderate (4-6)) Qty: 20 0RF amoxicillin-pot clavulanate [Augmentin] 500-125 mg tablet 1 tab PO TID Qty: 15 0RF duloxetine 60 mg capsule,delayed release(DR/EC) 60 mg PO DAILY duloxetine 30 mg capsule,delayed release(DR/EC) 30 mg PO ONCE PM ketoconazole 2 % shampoo topical loperamide 2 mg capsule PO doxycycline hyclate 100 mg tablet 100 mg PO BID 7 Days Qty: 14 0RF cephalexin 500 mg capsule 500 mg PO QID 7 Days Qty: 28 0RF fluconazole 100 mg tablet 100 mg PO DAILY 10 Days Qty: 10 0RF fluconazole 200 mg tablet 200 mg PO DAILY 10 Days Qty: 10 0RF ondansetron 4 mg tablet,disintegrating 4 mg PO TID-QID PRN (Reason: nausea and vomiting) Qty: 10 0RF Referrals: Abdoulaye Geronimo DO [Primary Care Provider] - Stand Alone Forms: Patient Portal/API
[2024-05-05] MEDS: HYDROCODONE/ACET 5/325 TABLET 1 TAB PO (08:33)
== END 2024-05-05 09:05 | disposition home or self-care (01) ==
PROVIDERS: Emergency Provider Emergency Medicine; PCP Family Medicine
DX: S01.01XA Laceration without foreign body of scalp, initial encounter (principal); W18.09XA Striking against other object with subsequent fall, initial encounter
CPT/HCPCS: 12001; 70450; 72125; 99283; 99284